=== PATIENT | female | born 2000 | race Caucasian/White ===

== ENCOUNTER 2022-12-23 09:26 | Outpatient (CLI) | payer OTHER, SELFPAY ==
[2022-12-23 10:33] LABS: Basophils Absolute Auto 0.1 K/mm3 (0.0-0.1); Basophils Percent Auto 0.6 % (0.2-1.2); Eosinophils Percent Auto 0.5 % (0-4.4); Hematocrit 39.2 % (37.0-47.0); Hemoglobin 12.8 g/dL (12.0-15.0); Immature Granulocyte Absolute 0.02 K/mm3 (0.00-0.031); Immature Granulocyte Percent A 0.2 % (0-0.5); Lymphocytes Absolute Auto 2.38 K/mm3 (0.9-3.2); Lymphocytes Percent Auto 27.8 % (18.3-44.2); Mean Corpuscular HGB Conc 32.7 g/dl (32-36); Mean Corpuscular Hemoglobin 27.8 pg (26-34); Mean Corpuscular Volume 85.2 fl (80-100); Mean Platelet Volume 9.7 fl (7.4-10.4); Monocytes Absolute Auto 0.5 K/mm3 (0.1-0.6); Monocytes Percent Auto 5.4 % (2.6-8.5); Neutrophils Absolute Auto 5.6 K/mm3 (1.3-6.7); Neutrophils Percent Auto 65.5 % (45.5-73.1); Platelet Count Result 305 k/mm3 (150-375); Red Cell Distribution Width 12.7 % (11.5-14.5); White Blood Count 8.6 K/mm3 (4.5-10.0)
[2022-12-23 11:18] LABS: HIV 1/2 Ab P24 Ag Result Negative (Negative)
[2022-12-23 11:27] LABS: Hepatitis B Surface Antigen Negative (Negative); Rubella IgG Antibody 5.3 IU/ML
[2022-12-23 12:22] LABS: Glucose 1 Hour PP 50gm Dose 100 mg/dL
[2022-12-24 11:57] LABS: Rapid Plasma Reagin Non-Reactive (NonReactive)
[2022-12-25 17:46] LABS: Varicella IgG Antibody <135.00 Index (>=165.00)
[2022-12-26 09:28] LABS: CMV IgG Antibody <0.60 U/mL (<0.60)
[2023-01-02 11:21] LABS: CF Result NEGATIVE (NEGATIVE); Ethnicity NG
[2023-01-02 19:00] LABS: SMA 2.0 RISK VARIANT NOT DETECTED
[2023-01-07 14:38] LABS: SMA Results Received Yes
== END 2022-12-23 09:27 | disposition home or self-care (01) ==
PROVIDERS: Visit Provider Student in an Organized Health Care Education/Training Program
DX: N94.89 Other specified conditions associated with female genital organs and menstrual cycle (principal)
CPT/HCPCS: 36415; 81220; 81329; 82947; 84702; 85025; 86592; 86644; 86703; 86747; 86762; 86787; 86850; 86900; 86901; 87086; 87088; 87147; 87340; G0432

== ENCOUNTER 2023-03-19 10:19 | Outpatient (CLI) | payer OTHER, SELFPAY ==
--- NOTE | 2023-03-19 10:37 | ECG_ITS ---
Measurements Intervals [place] Rate: 80 P: 33 IA: 132 QRS: 42 QRSD: 100 T: 16 QT: 364 QTc: 422 Interpretive Statements SINUS RHYTHM INCOMPLETE RIGHT BUNDLE BRANCH BLOCK BORDERLINE ECG NO PREVIOUS ECG AVAILABLE FOR COMPARISON Electronically Signed On 03-19-2023 11:11:43 CDT by Chris Watters D.O.
== END 2023-03-19 10:20 | disposition home or self-care (01) ==
LOC: ANHLAB 10:24
PROVIDERS: Visit Provider Obstetrics & Gynecology
DX: R00.2 Palpitations (principal); I45.10 Unspecified right bundle-branch block
CPT/HCPCS: 93005

== ENCOUNTER 2023-03-27 13:09 | Outpatient (CLI) | payer OTHER, SELFPAY | END 2023-03-27 13:10 | disposition home or self-care (01) | LOC: ANHLAB 13:10 | PROVIDERS: Visit Provider Obstetrics & Gynecology | DX: R30.9 Painful micturition, unspecified (principal) | CPT/HCPCS: 87086; 87088; 87147 ==

== ENCOUNTER 2023-05-14 10:58 | Outpatient (RCR) | payer OTHER, SELFPAY ==
[2023-05-14 12:40] LABS: Basophils Percent Auto 0.2 % (0.2-1.2); Eosinophils Percent Auto 0.3 % (0-4.4); Hematocrit 36.2 % (37.0-47.0); Hemoglobin 11.6 g/dL (12.0-15.0); Immature Granulocyte Absolute 0.08 K/mm3 (0.00-0.031); Immature Granulocyte Percent A 0.6 % (0-0.5); Lymphocytes Absolute Auto 2.16 K/mm3 (0.9-3.2); Lymphocytes Percent Auto 16.1 % (18.3-44.2); Mean Corpuscular Hemoglobin 27.8 pg (26-34); Mean Corpuscular Volume 86.8 fl (80-100); Mean Platelet Volume 9.8 fl (7.4-10.4); Monocytes Absolute Auto 0.8 K/mm3 (0.1-0.6); Monocytes Percent Auto 6.3 % (2.6-8.5); Neutrophils Absolute Auto 10.2 K/mm3 (1.3-6.7); Neutrophils Percent Auto 76.5 % (45.5-73.1); Platelet Count Result 315 k/mm3 (150-375); Red Blood Count 4.17 M/mm3 (4.2-5.4); White Blood Count 13.4 K/mm3 (4.5-10.0)
[2023-05-14 12:56] LABS: Glucose 1 Hour PP 50gm Dose 101 mg/dL
[2023-05-14 13:26] LABS: HIV 1/2 Ab P24 Ag Result Negative (Negative)
[2023-05-14] MEDS: RHO(D) IMMUNE GLOBULIN 300 MCG/2 ML SYRINGE IM (16:49)
== END 2023-08-12 23:59 | disposition home or self-care (01) ==
LOC: ANHLAB 10:58
PROVIDERS: Visit Provider Obstetrics & Gynecology
DX: Z11.4 Encounter for screening for human immunodeficiency virus [HIV] (principal); Z29.13 Encounter for prophylactic Rho(D) immune globulin; O36.0190 Maternal care for anti-D [Rh] antibodies, unspecified trimester, not applicable or unspecified; Z3A.00 Weeks of gestation of pregnancy not specified
CPT/HCPCS: 36415; 82947; 85025; 85461; 86703; 86850; 86900; 86901; 90384; 96372; G0432; J2790

== ENCOUNTER 2023-06-27 12:57 | Outpatient (CLI) | payer OTHER, SELFPAY | END 2023-06-27 12:58 | disposition home or self-care (01) | LOC: ANHLAB 12:58 | PROVIDERS: Visit Provider Obstetrics & Gynecology | DX: R30.9 Painful micturition, unspecified (principal) | CPT/HCPCS: 87086; 87088; 87147 ==

== ENCOUNTER 2023-07-08 16:47 | Observation (INO) | payer OTHER, SELFPAY ==
[2023-07-08 18:33] VITALS: BMI 42.2
--- NOTE | 2023-07-08 18:33 | OBADM ---
This patient, Evangelina Jaquez, admitted to the OB room Labor/Delivery/Recovery 104 for observation. Patient/family oriented to hospital policies and general routines including ID bracelet, bed and alarms, visiting hours, pain management, procedures, bathroom and other care routines, personal items, smoking policy, room service/diet, and visiting hours. Patient/Family are encouraged to report perceived risks to care and to ask questions if they do not understand what they are told or what they should do.
--- NOTE | 2023-07-09 12:00 | PM.OBTRLD ---
OB - Triage/Final Diagnosis Visit Information Comments/Additional reasons for admission: I have assessed the risk for this patient, Evangelina Jaquez, and determined that she would benefit from observation care. Evaluation Vital signs: Vital Signs - 24 hr 07/08/23 18:33 Oxygen Delivery Room Air Final Diagnosis (1) Abdominal pain affecting : Code(s): O26.899 - Other specified related conditions, unspecified trimester; R10.9 - Unspecified abdominal pain Status: Acute
== END 2023-07-08 18:45 | disposition home health service (06) ==
PROVIDERS: Admitting Provider Student in an Organized Health Care Education/Training Program; Visit Provider Obstetrics & Gynecology
DX: O26.899 Other specified pregnancy related conditions, unspecified trimester (principal); R10.9 Unspecified abdominal pain; Z3A.00 Weeks of gestation of pregnancy not specified
CPT/HCPCS: 84112; G0378; G0379

== ENCOUNTER 2023-07-15 12:03 | Outpatient (CLI) | payer OTHER, SELFPAY ==
[2023-07-15 13:15] VITALS: BP 116/73; PULSE 95
== END 2023-07-15 13:17 | disposition home or self-care (01) ==
PROVIDERS: Visit Provider Student in an Organized Health Care Education/Training Program
DX: O42.90 Premature rupture of membranes, unspecified as to length of time between rupture and onset of labor, unspecified weeks of gestation (principal); Z3A.00 Weeks of gestation of pregnancy not specified
CPT/HCPCS: 59025; 84112

== ENCOUNTER 2023-08-02 00:20 | Observation (INO) | payer OTHER, SELFPAY ==
--- NOTE | 2023-08-02 01:18 | PC.NURSE ---
[address] AMAYA. PT DENIES FEELING CONTRACTIONS. DISCHARGE ORDERS RECEIVED.
[2023-08-02 01:28] VITALS: BMI 42.2
--- NOTE | 2023-08-03 09:05 | PM.OBTRLD ---
OB - Triage/Final Diagnosis Visit Information Comments/Additional reasons for admission: I have assessed the risk for this patient, Evangelina Jaquez, and determined that she would benefit from observation care. Final Diagnosis (1) Back pain affecting : Code(s): O99.891 - Other specified diseases and conditions complicating ; M54.9 - Dorsalgia, unspecified Status: Acute
== END 2023-08-02 01:45 | disposition home or self-care (01) ==
PROVIDERS: Admitting Provider Obstetrics & Gynecology; Visit Provider Obstetrics & Gynecology
DX: O99.891 Other specified diseases and conditions complicating pregnancy (principal); M54.9 Dorsalgia, unspecified; Z3A.39 39 weeks gestation of pregnancy
CPT/HCPCS: G0378; G0379

== ENCOUNTER 2023-08-07 17:58 | Inpatient (IN) | payer OTHER, SELFPAY ==
[2023-08-07 21:31] LABS: Basophils Percent Auto 0.2 % (0.2-1.2); Eosinophils Percent Auto 0.3 % (0-4.4); Hematocrit 38.6 % (37.0-47.0); Hemoglobin 12.3 g/dL (12.0-15.0); Immature Granulocyte Absolute 0.04 K/mm3 (0.00-0.031); Immature Granulocyte Percent A 0.3 % (0-0.5); Lymphocytes Absolute Auto 2.41 K/mm3 (0.9-3.2); Lymphocytes Percent Auto 20.7 % (18.3-44.2); Mean Corpuscular HGB Conc 31.9 g/dl (32-36); Mean Corpuscular Hemoglobin 26.9 pg (26-34); Mean Corpuscular Volume 84.5 fl (80-100); Mean Platelet Volume 10.6 fl (7.4-10.4); Monocytes Absolute Auto 0.7 K/mm3 (0.1-0.6); Monocytes Percent Auto 5.6 % (2.6-8.5); Neutrophils Absolute Auto 8.5 K/mm3 (1.3-6.7); Neutrophils Percent Auto 72.9 % (45.5-73.1); Platelet Count Result 256 k/mm3 (150-375); Red Blood Count 4.57 M/mm3 (4.2-5.4); Red Cell Distribution Width 15.9 % (11.5-14.5); White Blood Count 11.6 K/mm3 (4.5-10.0)
[2023-08-07 21:32] VITALS: BP 126/76; PULSE 102
[2023-08-07] MEDS: DINOPROSTONE 10 MG VAG INSERT VAGINAL (22:02)
[2023-08-08] VITALS (178 sets, daily range): BP systolic 84–142; BP diastolic 41–95; PULSE 66–125; RESP 16–19; TEMP 36.1–36.7; O2SAT 90–100
--- NOTE | 2023-08-08 11:04 | PM.OBPNLAB ---
Pain Control Date/time seen: 08/08/23 11:04 Pain control: tolerating well Pelvic Exam Dilation (cm): 1 Effacement (%): 50 station: -2 Amniotic membrane status: Intact Contractions Monitor mode: External Contraction pattern: Irregular Status status: Category l Assessment and Plan Assessment: induction ongoing Comments: Will administer Buccal misoprostol for further cervical ripening
[2023-08-08] MEDS: miSOPROStol 25 MCG TABLET 50 MCG PO (11:22)
--- NOTE | 2023-08-08 11:57 | WPDANESEPP ---
Anes - Eval Pre Procedure Procedure: labor epidural Date/Time: 08/08/23 11:57 Preop Diagnosis: labor pain Pre Op Diagnosis: Induction of Labor Patient Data Age: 23 Gender: F Height: Weight: Last Vital Signs Temp 36.1 C L 08/08/23 10:12 Pulse 98 08/08/23 10:35 Resp 19 08/08/23 10:12 BP 134/72 08/08/23 10:35 O2 Del Method Room Air 08/07/23 22:00 Allergies Allergy/AdvReac Type Severity Reaction Status Date / Time cefdinir [From Omnicef] Allergy Mild Hives Verified 08/06/23 09:30 Home Medications Medication Instructions Recorded Confirmed Type prenat.vits,lillie,jdw-ibcg-ufuxf 1 tablet PO DAILY 12/22/22 03/18/23 History sertraline 50 mg tablet 50 mg PO DAILY 12/22/22 03/18/23 History ondansetron HCl 4 mg tablet 4 mg PO Q6H PRN nausea and 06/08/23 Rx vomiting #30 tabs ferrous sulfate 325 mg (65 mg 325 mg PO DAILY 06/11/23 History iron) tablet omeprazole 20 mg capsule,delayed 20 mg PO DAILY #30 caps 06/23/23 06/23/23 Rx release Laboratory Tests 08/07/23 21:24 WBC 11.6 H K/mm3 (4.5-10.0) RBC 4.57 M/mm3 (4.2-5.4) Hgb 12.3 g/dL (12.0-15.0) Hct 38.6 % (37.0-47.0) MCV 84.5 fl (80-100) MCH 26.9 pg (26-34) MCHC 31.9 L g/dl (32-36) RDW 15.9 H % (11.5-14.5) Plt Count 256 k/mm3 (150-375) MPV 10.6 H fl (7.4-10.4) Immature Gran % (Auto) 0.3 % (0-0.5) Neut % (Auto) 72.9 % (45.5-73.1) Lymph % (Auto) 20.7 % (18.3-44.2) Burnett % (Auto) 5.6 % (2.6-8.5) Eos % (Auto) 0.3 % (0-4.4) Baso % (Auto) 0.2 % (0.2-1.2) Lymph # (Auto) 2.41 K/mm3 (0.9-3.2) Burnett # (Auto) 0.7 H K/mm3 (0.1-0.6) Eos # (Auto) 0.0 K/mm3 (0-0.3) Baso # (Auto) 0.0 K/mm3 (0.0-0.1) Abs Immat Gran (auto) 0.04 H K/mm3 (0.00-0.031) Absolute Neuts (auto) 8.5 H K/mm3 (1.3-6.7) Absolute Nucleated RBC 0.0 K/mm3 (0.0-0.012) Nucleated RBC % 0.0 % (0.0-0.2) RPR Pending Blood Type O Negative Antibody Screen Negative Patient hx anesthesia problems: none Family hx anesthesia problems: none Results Review: All pre-operative results and documents have been reviewed as part of the pre-operative evaluation. [facility] Past Medical History Medical History Heart palpitations Pain with urination Suppression of menses Surgical History Surgical History H/O laparoscopy Family History Family History Grandparent Malignant neoplasm of prostate Diabetes mellitus Heart disease Breast cancer Hypertension Mother Hypertension Social History Social History Smoking status: Never smoker Second hand tobacco smoke exposure: No Alcohol intake: former Substance use: never Lack of Transportation: No Lack of Food: Never True Current Housing: I Have Housing Concerned About Future Housing: No Difficulty Paying Gas/Electric Bills: No Difficulty Paying for Meds: No Currently Unemployed: No Education: High School Diploma/GED Difficulty w/ Childcare or Family Care: No Living arrangements: other Additional living arrangements comments: spouse Occupation/Education: unemployed Gender identity (if verbalized by the patient): Female Sexual Orientation (if Verbalized by the Patient): Straight or Heterosexual Spiritual care concerns: No Exam Day of Procedure 08/08/23 11:57 Patient weight: normal Heart: regular rate and rhythm Lungs: clear to auscultation and normal air movement Airway: Mallampati scale class II Neurological: alert and oriented
[2023-08-08] MEDS: LACTATED RINGERS 1,000 ML 999 ML IV CONT (12:36)
[2023-08-08] MEDS: AMPICILLIN 2 GM/NS 100 ML 2 GM/100 ML BAG IVPB (15:00)
[2023-08-08] MEDS: LACTATED RINGERS 1,000 ML 125 ML IV CONT ×2 (15:00→21:41)
[2023-08-08] MEDS: OXYTOCIN 30 UNITS/NS 500 ML 30 UNITS/500 ML BAG IV CONT (15:35)
[2023-08-08] MEDS: AMPICILLIN 1 GM/NS 50 ML 1 GM/50 ML BAG IVPB (18:59)
--- NOTE | 2023-08-08 23:52 | P.PCNOB_ITS ---
OB - Delivery Note Procedure Procedure: Patient pushed for a spontaneous vaginal delivery. The fetus was delivered atraumatically and placed on the maternal abdomen. The cord was clamped and cut after 1 minute of life. The cord was double clamped and cut and a segment of cord was collected for cord gases. Cord blood was collected for blood type and Coomb's testing. The placenta delivered spontaneously and was noted to be intact. The perineum was inspected and there was a 2nd degree perineal laceration. The laceration was repaired with 2-0 vicryl in the usual fashion. The uterus was firm and good hemostasis was noted. The patient and fetus were stable in the delivery room. Induction method: Per Cervidil Protocol Delivery augmentation: Pitocin Delivery monitor: External FHT Route of delivery: Episiotomy description: None Laceration Description: Perineal - 2nd Degree Delivery repair: vicryl Specimen: No Quantitative Blood Loss (ml): 200 Anesthesia type: Epidural Disposition: Floor () Complications: No immediate complications [place] Baby Date of : 08/08/[birth year] Time of : 23:27 Weeks of gestation at delivery: 40 Infant gender: Female Weight (pounds): 7 Weight (ounces): 11 presentation: vertex position: Right Occiput Anterior Placenta delivery description: Spontaneous Cord Vessel Description: 3 Vessels score one minute: 8 score five minutes: 9 AMG Delivery Billing Delivery Delivery: Delivery Charge
[2023-08-09] VITALS (14 sets, daily range): BP systolic 108–153; BP diastolic 61–107; PULSE 78–102; RESP 16–18; TEMP 36.2–37.1; O2SAT 97–100
[2023-08-09] MEDS: OXYTOCIN 30 UNITS/NS 500 ML 30 UNITS/500 ML BAG 125 UNITS IV CONT (00:16)
[2023-08-09] MEDS: IBUPROFEN 600 MG TABLET PO ×3 (01:14→15:29)
--- NOTE | 2023-08-09 02:33 | PC.NURSE ---
Patient transferred to post room #278 per wheelchair from labor and delivery. Support person present. Oriented to unit, room, information board, rooming in, admission packet and security measures. Patient verbalizes understanding.
[2023-08-09 05:42] LABS: Hematocrit 35.8 % (37.0-47.0); Hemoglobin 11.4 g/dL (12.0-15.0)
--- NOTE | 2023-08-09 07:53 | P.PNOB_ITS ---
OB - PN: Subj Subjective Date/time seen: 08/09/23 07:53 Patient comments: no complaints, pain well controlled and tolerating diet [place] feeding status: exclusively breast feeding Narrative: patient doing well this AM. No complaints. Pain is well controlled. She reports minimal bleeding. She is ambulating and voiding without difficulty. She is tolerating PO. She denies N/V, fever, chills. OB - PN: Obj Data Labs 08/09/23 05:20 Labs: Laboratory Results - last 24 hr 08/09/23 05:20 Hgb 11.4 L Hct 35.8 L OB - PN A/P Plan day: 1 Plan: routine care Comments: patient doing well H/H stable continue routine care Time Spent With Patient Time: Total time spent is greater than 50% in coordination of care (as documented) at patient's floor/unit and/or counseling patient: Time with patient: less than 15 minutes Review of Systems Review of Systems: All systems reviewed & are unremarkable except as noted in HPI and below Exam Const: General: comfortable and no acute distress Resp: Effort & Inspection: normal respiratory effort Cardio: Rate: regular rate GI: GI Palp: Yes Soft to palpation and No Tenderness to palpation present (GI) Auscultation: normal bowel sounds Other: fundus firm and below umbilicus. Psych: Affect: normal affect
[2023-08-09] MEDS: MULTIVIT/MIN/PREN/FOL AC/IRON TABLET 1 TAB PO (08:13)
[2023-08-09] MEDS: DIBUCAINE 1% OINTMENT 30 GM TUBE 1 APPLIC TOPICAL (08:14)
[2023-08-09] MEDS: LANOLIN (LANSINOH) 7.5 GM CREAM 1 APPLIC TOPICAL (08:14)
--- NOTE | 2023-08-09 12:26 | WPDANLDPN2 ---
Anes-Prog Note L&D Date/Time: 08/09/23 12:26 Comfortable throughout: labor and delivery Neuraxial method: epidural Epidural/Spinal procedure site: clean & non-tender Neuro status: Neuro function grossly intact. Cardiovascular status: normal Respiratory status: normal Airway patency: baseline Mental status: baseline Post-Op hydration status: normal Vital Signs: Last Vital Signs Temp 36.9 C 08/09/23 07:30 Pulse 85 08/09/23 07:30 Resp 16 08/09/23 07:30 BP 130/72 08/09/23 07:30 Pulse Ox 100 08/09/23 07:30 O2 Del Method Room Air 08/08/23 18:54 Pain score (VAS): 2/10 I/O: Intake & Output 08/08/23 08/09/23 08/09/23 23:59 07:59 15:59 Intake Total 1050 500 Output Total 200 Balance 1050 300 Post-procedural complaints: none Patient feedback: Patient satisfied with anesthetic care.
[2023-08-09] MEDS: ACETAMINOPHEN 325 MG TABLET 650 MG PO ×2 (12:43→19:32)
[2023-08-09] MEDS: SENNA/DOCUSATE SODIUM TABLET 2 TAB PO (20:22)
[2023-08-09 21:57] LABS: Rapid Plasma Reagin Non-Reactive (NonReactive)
[2023-08-10] MEDS: ACETAMINOPHEN 325 MG TABLET 650 MG PO ×2 (02:44→09:29)
[2023-08-10] MEDS: IBUPROFEN 600 MG TABLET PO ×2 (02:44→09:29)
[2023-08-10 07:40] VITALS: BP 127/65; PULSE 84; RESP 16; TEMP 37; O2SAT 100
[2023-08-10 08:00] VITALS: PULSE 84; RESP 16; O2SAT 100
[2023-08-10] MEDS: DOCUSATE SODIUM 100 MG CAPSULE PO (09:30)
[2023-08-10] MEDS: MULTIVIT/MIN/PREN/FOL AC/IRON TABLET 1 TAB PO (09:30)
--- NOTE | 2023-08-10 10:42 | PC.NURSE ---
Patient viewed the discharge video Mother & Baby Care, The First Two Weeks . Patient was given the opportunity and encouraged to ask questions. Patient verbalized understanding of information shared and has been given the mother/baby guide for home reference.
--- NOTE | 2023-08-10 11:53 | PC.NURSE ---
[id number] Introductions were made, then consulted with patient to assess needs related to . Mother led the conversation with her?plans to feed?her infant, the?experience so far and discussed the multiple bruises on her areola from earlier feedings. Resources provided for inpatient and outpatient services with the feeding sheet, mom/baby guide and name written on the white board. Mother voiced understanding of information and will call if there is a request for assistance. RN to the nursery to see if can come back to the parents. [id number] Mother works well with her infant with encouragement and education. Encouraged understanding of the benefits of skin to skin (demonstrating unwrapping and placing upright on her chest), stimulating with massage touch, changing positions to encourage wakefulness, how to watch for early feeding cues, responsive feeding, feeding on demand (aiming for 8-12 times in 24 hours, about every 2-3 hours), milk production, building/maintaining a milk supply, duration of feeding, signs of adequate intake/output and how to record on the feeding sheet. Reviewed positioning and ear, shoulder, hip alignment, supporting the breast to facilitate a deep latch, asymmetrical latch (off-center), leading with the chin with a big, open, wide gape and body close to mother. Infant latched optimally to the left breast in cross cradle position. Education given to mother of how to visualize suck/swallow and listen for drinking at the breast. Infant was able to maintain latch without discomfort to mother. Nipple care reviewed with optimal latch and good positioning. After an effective breastfeed for 15 minutes, infant was detached, placed gfft-va-vkey then offered the right breast. latched optimally to the right breast using football positioning. Reminding mother of comfort measures of healing with a warm and wet washcloth to rinse breast, then leave open to air-dry as needed. Reviewed good handwashing when or touching the breast/nipples to prevent infection. Resources used to facilitate learning were used with the visual handouts, tool, mom and baby guide. Mother is feeding appropriately for growth of infant and understands stimulating infant to eat if needed. Infant has had appropriate feedings in the last 24 hours meets the outcomes for weight, output and jaundice at this time. Mother states she is confident to continue effectively her infant at home, when to call for assistance and denies any additional assistance or education at this time. Reinforced understanding of milk production, transition of milk, signs of adequate intake, transition of stool, prevention/relief of engorgement, plugged ducts, mastitis, responsive watching for feeding cues, the different methods of stimulating to breastfeed 2-3 hours after the start of the last feeding, community resources and when to call a provider using the resource of the mom and baby guide. Parents voiced understanding of the education shared. Reported to the primary RN. [id number] Parents called RN to the room to ask questions concerning and baby care. We reviewed and discussed many topics of concern. Parents were encouraged to reach out to resources when needed, when to call the Doctor but no more new questions at this time for the RN. Dr. Hernandez is present.
[2023-08-10] MEDS: MEASLES,MUMPS,RUBELLA VACCINE 0.5 ML VIAL SUB-Q (13:31)
--- NOTE | 2023-08-10 13:45 | PM.OBDSVD ---
DS: Admitting Diagnosis Discharge Date 08/10/23 Admitting Diagnosis intrauterine at term DS: Discharge Diagnosis Discharge Diagnosis (1) Normal vaginal delivery: Code(s): O80 - Encounter for full-term uncomplicated delivery Status: Acute OB - DS: Summary OB Procedures : None OB Procedures Intrapartum: Spontaneous Vag Delivery OB Procedures: : None Status at Discharge Functional status at discharge: independent ambulation Overall status at discharge: patient is back to baseline Time Spent with Patient Time attestation: Total time spent providing and/or coordinating discharge services: Time spent: Less than 30 minutes Exam Const: General: comfortable and no acute distress Resp: Effort & Inspection: normal respiratory effort Auscultation: clear to auscultation bilaterally Cardio: Rate: regular rate GI: GI Palp: Yes Soft to palpation Auscultation: normal bowel sounds Other: Fundus firm below umbilicus Psych: Appearance: grossly normal Mental Status: mental status grossly normal Affect: normal affect DS: Data Data Completed and Pending Labs on day of discharge: Labs from last 24 hours 08/07/23 21:24 RPR Non-reactive Discharge Plan Discharge Discharging Clinician: Jose Martin Hernandez Patient Disposition: Home, Self-Care Activity: as tolerated and pelvic rest Diet: regular Patient Instructions: Antibiotic Form Stand Alone Forms: General Discharge Information Follow-up/Referrals: Jose Martin Hernandez MD [Physician] - Discharge Medications: New ibuprofen 600 mg tablet 600 mg PO Q6H PRN (Reason: pain) Qty: 30 0RF acetaminophen 500 mg tablet 500 mg PO Q6H PRN (Reason: pain) Qty: 30 0RF Continued ferrous sulfate 325 mg (65 mg iron) tablet 325 mg PO DAILY sertraline 50 mg tablet 50 mg PO DAILY prenat.vits,lillie,cbu-symn-aavld Tablet 1 tablet PO DAILY omeprazole 20 mg capsule,delayed release(DR/EC) 20 mg PO DAILY Qty: 30 3RF ondansetron HCl 4 mg tablet 4 mg PO Q6H PRN (Reason: nausea and vomiting) Qty: 30 1RF Date of admission: 08/07/23 17:58 Primary Care Provider: UNKNOWN,DOCTOR Admitting Provider: Jose Martin Hernandez Attending physician on admission: Jose Martin Hernandez Condition: Stable
[2023-08-12 09:28] VITALS: BP 139/83; PULSE 87; RESP 18; TEMP 37.1; O2SAT 99
== END 2023-08-10 15:25 | disposition home or self-care (01) | DRG 807 ==
LOC: ANHLDR 18:02 → ANHOB2 08-09 02:52
PROVIDERS: Admitting Provider Student in an Organized Health Care Education/Training Program; Visit Provider Student in an Organized Health Care Education/Training Program
DX: O99.824 Streptococcus B carrier state complicating childbirth (principal); Z37.0 Single live birth; Z3A.40 40 weeks gestation of pregnancy; O77.0 Labor and delivery complicated by meconium in amniotic fluid; O70.1 Second degree perineal laceration during delivery
CPT/HCPCS: 36415; 85014; 85018; 85025; 86592; 86850; 86900; 86901; 90710; A9270; J0290; J2590; J2795; J7120

== ENCOUNTER 2023-09-26 16:20 | Emergency (ER) | payer OTHER, SELFPAY ==
[2023-09-26 16:32] VITALS: BP 108/72; PULSE 75; RESP 16; TEMP 36.4; O2SAT 98
--- NOTE | 2023-09-26 16:58 | ED.SKABFB ---
HPI - Skin/Abscess/Foreign Bdy General Chief complaint: Skin/Abscess/Foreign Body Stated complaint: Rash Time Seen by Provider: 09/26/23 16:53 Source: patient and RN notes reviewed Mode of arrival: ambulatory Limitations: no limitations History of Present Illness HPI narrative: Patient presents today complaining of a rash in her abdominal skin fold times 2-3 days. States that is pruritic and she has been scratching it. States that she has used some home athlete's foot cream a few times, but stopped using it because she did not want to make the rash worse. Related Data Home Medications Medication Instructions Recorded Confirmed sertraline 50 mg tablet 50 mg PO DAILY 09/03/23 09/26/23 vit#24-iron amino acid 1 tablet PO DAILY 09/26/23 09/26/23 chelat-folic acid 30 mg-975 mcg tablet Allergies Allergy/AdvReac Type Severity Reaction Status Date / Time cefdinir [From Omnicef] AdvReac Mild Hives Verified 09/26/23 16:34 Review of Systems Review of Systems: CONSTITUTIONAL: Denies body aches, fever, chills, or sweats. EYES: Denies visual changes, redness, or discharge. ENT: Denies rhinorrhea, congestion, sore throat, or otalgia. CARDIOVASCULAR: Denies chest pain, palpitations, or edema. RESPIRATORY: Denies cough or dyspnea. GASTROINTESTINAL: Denies abdominal pain, nausea, vomiting, or diarrhea. GENITOURINARY: Denies dysuria or hematuria. SKIN: + pruritic rash MUSCULOSKELETAL: Denies back pain, joint pain, or myalgia. NEUROLOGIC: Denies headache, numbness, tingling, or weakness. PSYCH: Denies depression or anxiety. [facility] Past Medical History Medical History Heart palpitations Pain with urination Suppression of menses Surgical History Surgical History H/O laparoscopy Family History Family History Grandparent Malignant neoplasm of prostate Diabetes mellitus Heart disease Breast cancer Hypertension Mother Hypertension Social History Social History Smoking status: Never smoker Second hand tobacco smoke exposure: No Alcohol intake: former Substance use: never Lack of Transportation: No Lack of Food: Never True Current Housing: I Have Housing Concerned About Future Housing: No Difficulty Paying Gas/Electric Bills: No Difficulty Paying for Meds: No Currently Unemployed: No Education: High School Diploma/GED Difficulty w/ Childcare or Family Care: No Living arrangements: other Additional living arrangements comments: spouse Occupation/Education: unemployed Gender identity (if verbalized by the patient): Female Sexual Orientation (if Verbalized by the Patient): Straight or Heterosexual Spiritual care concerns: No Comments At time of signature, I have reviewed and agree with nursing past medical, surgical, social and family history unless otherwise noted. Please see nursing chart for further information. There is no relevant family history pertinent to the presenting complaint Exam Narrative: GENERAL: Well-appearing, well-nourished, and in no acute distress. HEAD: Normocephalic, atraumatic. EYES: EOMI. No redness or drainage. Conjunctivae normal. ENT: Mucous membranes pink and moist. NECK: Normal AROM. CHEST: No respiratory distress. EXTREMITIES: Normal range of motion. No edema. SKIN: Warm, dry. Capillary refill normal. Normal skin turgor. Large area of erythematous papular rash to the lower abdominal skin fold. Rash is dry. No open wounds. No weeping or drainage. NEURO: No focal deficits. Alert and oriented x3. Gait steady. PSYCH: Normal affect. No signs of depression or anxiety. Course Course Level of Care: Express Care Visit Vital Signs Vital signs: Vital Signs Temperature 97
== END 2023-09-26 17:04 | disposition home or self-care (01) ==
PROVIDERS: Emergency Provider Nurse Practitioner
DX: L30.4 Erythema intertrigo (principal)
CPT/HCPCS: 99213; G0463

== ENCOUNTER 2025-01-28 10:38 | Emergency (ER) | payer OTHER, SELFPAY ==
--- OUTSIDE RECORDS SUMMARY | 2025-01-28 10:40 | XMS_ITS | Referral Summary ---
Author Organization [facility] Virtual Care Address [facility] [place] [address] Phone Care Team Providers Care Summer Clerk Name Role Phone Kristy Oates HELPER COORDINATOR Primary Care Provider Luiza Patel DPT Unavailable [phone] Encounters Date Type Department Care Team Description 01/05/2025 Telephone [facility] [address] [place] [address] Shelly Tay RPh 01/05/2025 Telephone [facility] Rheumatology at [address], [place] [address] Nicky Truong DO wear a mask 01/03/2025 Telephone [facility] Rheumatology at [address], [place] [address] Nicky Truong DO 12/15/2024 E-Visit [facility] Rheumatology at [address], [place] [address] Nicky Truong DO Physical therapy 11/30/2024 9:48 AM MOTOR BIKE MECHANIC - 11/30/2024 11:59 PM MOTOR BIKE MECHANIC Hospital Encounter [facility] [address] [place] [address] Discharge Disposition: Discharge to home or self care 11/30/2024 8:15 AM MOTOR BIKE MECHANIC Office Visit [facility] Rheumatology at [facility] [address] [place] [address] Nicky Truong DO Seronegative inflammatory arthritis (Primary Dx); High risk medication use from Last 3 Months Allergies Active Allergy Reactions Criticality Noted Date Comments Adhesive Rash Medium 06/20/2022 Papular rash to adhesive bandages Cashew Nut Anaphylaxis,Other (S ee comments) High 01/31/2013 Cefdinir Hives,Itching,Rash Medium 07/03/2006 Medications iron 18 mg tablet Take by mouth every other day Active magnesium oxide (MAG-OX) 500 mg (301.6 mg elemental) tablet every other day Acti ve acetaminophen (TYLENOL) 500 mg tablet Take 1 tablet (500 mg total) by mouth every 6 (six) hours as needed for pain Active EPINEPHrine 0.3 mg/0.3 mL auto-injection syringeIndicat ions:Anaphylax is Inject 0.3 mL (0.3 mg total) into the muscle as instructed as needed for anaphylaxis 2 each 04/03/20 23 Active sertraline (ZOLOFT) 50 mg tabletIndicati ons:Anxiety,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 (HCC) TAKE ONE AND ONE-HALF TABLETS DAILY 135 tablet 3 07/01/20 24 Active ketoconazole (NIZORAL) 2 % creamIndicatio ns:Candidal intertrigo APPLY TOPICALLY TO THE AFFECTED AREA TWICE DAILY 30 g 2 09/01/20 24 Active adalimumab (Humira,CF, Pen) 40 mg/0.4 mL pen injector kit Inject 0.4 mL (40 mg total) under the skin every 14 (fourteen) days 2 each 09/26/20 24 Active hydroxychloroq uine (PLAQUENIL) 200 mg tablet TAKE 2 TABLETS DAILY 180 tablet 3 11/24/19 25 Active etanercept (ENBREL) 50 mg/mL (1 mL) pen injector Inject 1 mL (50 mg total) under the skin every 7 days 4 mL 5 01/06/20 25 Active meloxicam (MOBIC) 15 mg tablet Take 1 tablet (15 mg total) by mouth daily 90 tablet 01/06/20 25 Active meloxicam (MOBIC) 15 mg tablet TAKE 1 TABLET(15 MG) BY MOUTH DAILY 30 tablet 2 11/15/19 25 025 Discontinued Active Problems Problem Noted Date Diagnosed Date High risk medication use 11/30/2024 Assessment & Plan (11/30/2024 7:07 AM MOTOR BIKE MECHANIC): Patient is on immunosuppressive medication requiring intensive lab monitoring for medication safety. Seronegative inflammatory arthritis 08/22/2024 Assessment & Plan (11/30/2024 9:27 AM MOTOR BIKE MECHANIC): Better with addition of hydroxychloroquine, but still with moderate-high disease severity. She is a woman of child-bearing years, not currently on any method of control. Would avoid methotrexate and leflunomide due to high risk of teratogenicity. Currently on Humira x7 shots and not noticing super robust response. Check labs and if no improvement in inflammation markers, will consider switch to Enbrel. Continue other medications the same for now. Assessment & Plan (08/22/2024 9:32 AM CDT): Better with addition of hydroxychloroquine, but still with moderate-high disease severity. She is a woman of child-bearing years, not currently on any method of control. Would avoid methotrexate and leflunomide due to high risk of teratogenicity. Discussed sulfasalazine versus Humira. I think that given her degree of symptoms and that she is having to walk with a walker, we should proceed with Humira. Demonstrated use of Humira pen today. Discussed side effects including: injection site reactions, infections, etc. She is willing to proceed. Continue hydroxychloroquine 200 mg BID and meloxicam 15 mg daily for now. Therapeutic drug monitoring 08/22/2024 Assessment & Plan (08/22/2024 9:33 AM CDT): Check labs for medication monitoring after starting on hydroxychloroquine. Candidal intertrigo 04/18/2024 Overview (04/18/2024): - intermittent redness and pain under abdominal fold - used lotrimin and gold odonnell powder without resolution of symptoms - worse since having daughter 8 months ago - denies open areas, drainage, or bleeding Encouraged to keep area dry and maintain good hygiene practices. Start ketoconazole cream. Follow up if symptoms worsen or fail to improve. BMI 45.0-49.9, adult 04/18/2024 Overview (04/18/2024): - increased weight since of daughter - normal TSH and glucose within past 2 months - denies increased hunger, thirst, urination, depression Encouraged increased awareness of habits. Focus on enjoyable physical activity and quality sleep. Chronic cough 09/26/2022 Overview (12/26/2022): -Few month history of cough -Cough is still present, not as bothersome -Improving cough, resolved and is back, but not as intense -Scant mucous with cough -Color varies but mostly yellow mucous -Occasional drainage from nose -Is not taking any OTC -Denies KING, sinus pressure, trouble breathing, CP, N/V Supportive care measures provided to patient. She is not interested in starting any medications at this time. Chronic pain of multiple joints 08/11/2022 Overview (04/18/2024): - chronic joint pain in knees, ankles, and wrists - intermittent radiating pain in upper and lower back - chronic fatigue - improvement with baseline pain since starting meloxicam 7.5 mg daily - upcoming appointment with [facility] Rheumatology - denies redness, warmth, injury, pica, SOB, CP Increase meloxicam to 15 mg daily. Menorrhagia with regular cycle 05/05/2022 Dysmenorrhea 05/05/2022 Overview (05/05/2022): Added automatically from request for surgery [id number] Pelvic pain 01/15/2022 Overview (03/20/2022): - pelvic pain since 09/2021 - no history of PAP - denies discharged, abnormal periods, GI symptoms, UTI symptoms, or back pain - appointment with [employer] in 02/2022 - possible interstitial cystitis Depression Overview (12/26/2022): -Last office visit Zoloft 50mg prescribed -Tolerating medication dosage -Improvement in mood and anxiety -Has not resumed working -Recently got and is expecting -Currently 8 weeks , established with OBGYN -Appears to be excited and in good spirits -Still has some little pleasure in doing things -Not currently following with counselor due to insurance change -Endorsed having good support system at home -Denies SI/HI, difficulty focusing Plan to continue current dosage of Zoloft 50mg. Patient is aware to contact the office with any changes in mood or concerns. If any issues locating new counselor, patient to contact office. Plan to see patient back in clinic for annual visit. Anxiety Overview (09/26/2022): - ongoing anxiety and increased depression - stopped medications in 04/2022 and 05/2022 - difficulty getting out of the house - quit job d/t bad work environment - previously prescribed several antidepressants - following up with counselor for 2 months - denies SI and HI Start sertaline 50 mg daily- reviewed side effects. May increase to 75 mg after 1 week. Continue counseling and follow up in 4-6 weeks. Resolved Problems Problem Noted Date Diagnosed Date Resolved Date Supervision of other normal , antepartum 12/17/2022 12/23/2022 Overview (12/17/2022): -positive MECCA 11/26/22, being followed up with by rheumatology -BMI>40 [] Initial BMI: [] Labs: [] Genetic Screening: [] Baby ASA: [] 1hr GCT at 24-28wks: [] Tdap (27-36wks): [] Flu Shot: [] COVID vaccine: [] Rhogam (if Rh neg): [] GBS at 36 wks: [] [] control method: [] 39 weeks discussion of IOL vs. Expectant management: [] Mode of delivery: [] For C/S bottle of CHG 4% and hand out provided @ 36wks Teaching: [] 1st visit [] 28-30 week [] 36 week Acute recurrent frontal sinusitis 02/28/2021 01/15/2022 Immunizations Immunization Administration Dates Next Due DTaP 11/30/2000,01/13/2000,1999 ,1999 HPV9 06/09/2016 Hep A, Pediatric 06/09/2016 Hep B / HiB 1999 Hep B, Adolescent or Pediatric 04/23/2000,1998 Hib (PRP-T) 11/30/2000,01/13/2000,1999 IPV 04/23/2000,1999,1999 Influenza, Unspecified 07/09/2023 MMR 09/16/2000 Meningococcal ACWY, Unspecified 06/09/2016 PPD TEST 11/15/2021 Tdap 06/25/2023 Varicella 09/16/2000 Social History Tobacco Use Types Packs/Day Years Used Date Smoking Tobacco: Never Smokeless Tobacco: Never Tobacco Cessation:Counseling Given: Not Answered AUDIT-C Answer Date Recorded Q1: How often do you have a drink containing alc ohol? Monthly or less 12/26/2022 Average Number of Drinks Not on file 023 Frequency of Binge Drinking Not on file 12/2022 PHQ-2 Answer Date Recorded PHQ-2 Total Score (If total score is 3 or more points, staff should administer the PHQ-9) 4 02/21/2022 Comments Unknown Sex and Gender Information Value Date Recorded Sex Assigned at Not on file Legal Sex Female 1:17 PM CDT Gender Identity Female 10/10/2021 10:07 AM MOTOR BIKE MECHANIC Sexual Orientation Choose not to disclose 2020 10:07 AM MOTOR BIKE MECHANIC Last Filed Vital Signs Vital Sign Reading Time Taken Comments Blood Pressure 122/66 11/30/2024 8:40 AM MOTOR BIKE MECHANIC Pulse 90 11/30/2024 8:40 AM MOTOR BIKE MECHANIC Temperature 36.7 C (98 F) 11/30/2024 8:40 AM MOTOR BIKE MECHANIC Respiratory Rate 18 11/30/2024 8:40 AM MOTOR BIKE MECHANIC Oxygen Saturation 98% 11/30/2024 8:40 AM MOTOR BIKE MECHANIC Inhaled Oxygen Concentration - - Weight 129.3 kg (285 lb) 11/30/2024 8:40 AM MOTOR BIKE MECHANIC Height 165.1 cm (5' 5 ) 11/30/2024 8:40 AM MOTOR BIKE MECHANIC Body Mass Index 47.43 11/30/2024 8:40 AM MOTOR BIKE MECHANIC Plan of Treatment Not on file Procedures Procedure Name Priority Date/Time Associated Diagnosis Comments EGFR Routine 11/30/2024 9:43 AM MOTOR BIKE MECHANIC Seronegative inflammatory arthritis High risk medication use CRP (ACUTE PHASE) Routine 11/30/2024 9:4 3 AM MOTOR BIKE MECHANIC Seronegative inflammatory arthritis High risk medication use ERYTHROCYTE SEDIMENTATION RATE Routine 11/30/2024 9:43 AM MOTOR BIKE MECHANIC Seronegative inflammatory arthritis High risk medication use COMPREHENSIVE METABOLIC PANEL Routine 11/30/2024 9:43 AM MOTOR BIKE MECHANIC Seronegative inflammatory arthritis High risk medication use CBC WITHOUT DIFFERENTIAL Routine 11/30/2024 9:43 AM MOTOR BIKE MECHANIC Seronegative inflammatory arthritis High risk medication use HEPATITIS C ANTIBODY Routine 08/22/2024 1:05 PM CDT Need for hepatitis C screening test from Last 3 Months or Most Recently Relevant to Health Maintenance Results * eGFR (11/30/2024 9:43 AM MOTOR BIKE MECHANIC) eGFR >90 >=60 mL/min/1. 73 m2 Comment: Interpretive Data Reference Interval Normal >/= 90 mL/min/1.73m2 Mildly decreased* 60 - 89 mL/min/1.73m2 Mildly to moderately decreased 45 - 59 mL/min/1.73m2 Moderately to severely decreased 30 - 44 mL/min/1.73m2 Severely decreased 15 - 29 mL/min/1.73m2 Kidney Failure < 15 mL/min/1.73m2 *Relative to young adult level Estimated glomerular filtration rate is determined by the 2020 CKD-EPI equation recommended by the National Kidney Foundation (A Unifying Approach to GFR Estimation: Recommendations of the NKF-ASK Task Force on Reassessing the Inclusion of Race in Diagnosing Kidney Disease, JASN 2020). The CKD-EPI equation should not be used for patients with unstable renal function and has not been validated in children and those over 70. Current interpretive data was last reviewed 2021. Blood 11/30/2024 9:43 AM MOTOR BIKE MECHANIC 11/30/2024 1:25 PM MOTOR BIKE MECHANIC [facility] [place]OD [place] Final Result Performing Organization Address City/[facility]/ZIP Co de Phone Number [facility] [address] [facility] [place] [address] * (ABNORMAL) Erythrocyte sedimentation rate (11/30/2024 9:43 AM MOTOR BIKE MECHANIC) Erythrocyte sedimentation rate 22(H) 1 - 20 mm/hr Blood 11/30/2024 9:43 AM MOTOR BIKE MECHANIC 11/30/2024 1:26 PM MOTOR BIKE MECHANIC Nickychristiano Copeer LAB BLOOD ORDERABLES Final Result Performing Organization Address [facility] de Phone Number [facility] [address] [facility] [place] [address] * (ABNORMAL) CBC without differential (11/30/2024 9:43 AM MOTOR BIKE MECHANIC) Pathologist [facility] WBC 8.2 3.8 - 9.9 K/cumm Hgb 13.5 11.9 - 15.5 g/dL [facility] Hct 42.2 35.6 - 45.5 % [facility] Plt 282 150 - 400 K/cumm [facility] MPV 10.6 9.1 - 12.3 fL [facility] RBC 4.84 3.90 - 5.20 M/cumm [facility] MCV 87.2 81.3 - 96.4 fL [facility] MCH 27.9 27.1 - 33.3 pg [facility] MCHC 32.0(L) 32.3 - 35.7 g/dL [facility] RDW CV 12.6 11.1 - 14.9 % [facility] RDW SD 40.2 35.7 - 48.1 fL [facility] NRBC abs 0.00 0.00 - 0.01 K/cumm [facility] Blood 11/30/2024 9:43 AM MOTOR BIKE MECHANIC 11/30/2024 1:26 PM MOTOR BIKE MECHANIC Nicky Truong LAB BLOOD ORDERABLES Final Result Performing Organization Address City/[facility] Co de Phone Number [facility] [address] [facility] [place] [address] * (ABNORMAL) CRP (acute phase) (11/30/2024 9:43 AM MOTOR BIKE MECHANIC) Pathologist [facility] CRP 23.8(H) <=10.0 mg/L Blood 11/30/2024 9:43 AM MOTOR BIKE MECHANIC 11/30/2024 1:25 PM MOTOR BIKE MECHANIC Nickychristiano Aburto Dionne LAB BLOOD ORDERABLES Final Result Performing Organization Address [facility] de Phone Number [facility] [address] [facility] [place] [address] * (ABNORMAL) Comprehensive metabolic panel (11/30/2024 9:43 AM MOTOR BIKE MECHANIC) Pathologist [facility] Sodium 138 135 - 145 mmol/L Potassium, pl 4.2 3.3 - 4.9 mmol/L [facility] Chloride 103 97 - 110 mmol/L [facility] CO2 24 22 - 32 mmol/L [facility] Anion gap 11 2 - 15 mmol/L [facility] BUN 16 6 - 25 mg/dL [facility] Creatinine 0.49(L) 0.60 - 1.10 mg/dL [facility] Glucose 94 70 - 199 mg/dL [facility] Comment: Interpretive Data Fasting glucose >/= 126 mg/dl is diagnostic for diabetes. Fasting is defined as no caloric intake for at least 8 hours. Fasting glucose between 100 mg/dl to 125 mg/dl is diagnostic of prediabetes. In a patient with classic symptoms of hyperglycemia or hyperglycemic crisis, a random glucose >/= 200 mg/dl is diagnostic for diabetes. In the absence of unequivocal hyperglycemia, results should be confirmed by repeat testing. The classification and Diagnosis of Diabetes Diabetes Care 2021; 46: S19-S40. Current interpretive data was last revised 2022. Calcium 9.0 8.5 - 10.3 mg/dL [facility] Bilirubin, total 0.3 0.1 - 1.2 mg/dL [facility] Protein, pl 7.2 6.5 - 8.5 g/dL [facility] Albumin 4.0 3.5 - 5.0 g/dL [facility] Alk phos 70 40 - 130 Units/L [facility] ALT 12 7 - 45 Units/L [facility] AST 14 10 - 45 Units/L [facility] Blood 11/30/2024 9:43 AM MOTOR BIKE MECHANIC 11/30/2024 1:25 PM MOTOR BIKE MECHANIC Nicky Truong DO LAB BLOOD ORDERABLES Final Result Performing Organization Address [facility] Co de Phone Number [facility] [address] [place] [address] * Hepatitis C antibody Blood (08/22/2024 1:05 PM CDT) Hep C Ab Nonreactive Nonreactive Comment: Interpretive Data Nonreactive: Antibodies to HCV not detected. Does NOT exclude the possibility of recent exposure to HCV. Equivocal: Equivocal for HCV antibodies. Supplemental molecular testing will be automatically performed to determine infection status in accordance with current CDC screening recommendations. Reactive: Positive for HCV antibodies. This may represent current or past HCV infection. Supplemental molecular testing will be automatically performed to determine current infection status in accordance with current CDC screening recommendations. Interpretive data was last revised on 2020. Blood 08/22/2024 1:05 PM CDT 08/22/2024 1:05 PM CDT Nicky Truong DO LAB MICROBIOLOGY - GENERAL ORDERABLES Final Result Performing Organization Address City/[facility]/ZIP Co de Phone Number [facility] [address] [place], [place] [id number] from Last 3 Months or Most Recently Relevant to Health Maintenance Insurance [employer] OPEN ACCESS [employer] OPEN ACCESS Care Teams Summer Clerk Relationship Specialty Start Date End Date Kristy Oates NP PCP - General Nurse Practitioner 01/03/22 Luiza Patel DPT Physical Therapist Physical Therapy 03/20/22
--- OUTSIDE RECORDS SUMMARY | 2025-01-28 10:40 | XMS_ITS | Clinical Summary ---
Author Organization [facility] Virtual Care Address [address] [place] [phone] Phone Care Team Providers Care Business Technology Teacher Name Role Phone Kristy Oates TEMPLATE REPRODUCTION TECHNICIAN Primary Care Provider Luiza Patel DPT Unavailable [phone] Allergies Active Allergy Reactions Criticality Noted Date [...] skin every 14 (fourteen) days 2 each 11 09/26/20 24 Active hydroxychloroq uine (PLAQUENIL) 200 [...] 11/30/2024 Assessment & Plan (11/30/2024 7:07 AM CLIENT LEADER): Patient is on immunosuppressive medication requiring intensive lab monitoring for medication safety. Seronegative inflammatory arthritis 08/22/2024 Assessment & Plan (11/30/2024 9:27 AM CLIENT LEADER): Better with addition of hydroxychloroquine, but still [...] 7.5 mg daily - upcoming appointment with [facility] Rheumatology - denies redness, warmth, injury, pica, SOB, CP Increase meloxicam to 15 mg daily. Menorrhagia with regular cycle 05/05/2022 Dysmenorrhea 05/05/2022 Overview (05/05/2022): Added automatically from request for surgery [id number] Pelvic pain 01/15/2022 Overview (03/20/2022): - pelvic pain since 09/2021 - no history of PAP - denies discharged, abnormal periods, GI symptoms, UTI symptoms, or back pain - appointment with [facility] in 02/2022 - possible interstitial cystitis Depression [...] week Acute recurrent frontal sinusitis 02/28/2021 01/15/2022 Encounters Date Type Department Care Team Description 01/05/2025 Telephone [facility] [address] [facility] [address] [place] [phone] Shelly Tay [facility] 01/05/[address] [facility] Rheumatology at [address] [place] [phone] Nicky Truong DO wear a mask 01/03/[address] [facility] Rheumatology at [address] [place] [phone] Nicky Truong DO 12/15/2024 E-Visit [facility] Rheumatology at [address] [place] [phone] Nicky Truong DO Physical therapy 11/30/2024 9:48 AM CLIENT LEADER - 11/30/2024 11:59 PM CLIENT LEADER Hospital Encounter [address] [phone] Discharge Disposition: Discharge to home or self care 11/30/2024 8:15 AM CLIENT LEADER Office Visit [facility] Rheumatology at [address] [place] [phone] Nicky Truong DO Seronegative inflammatory arthritis (Primary Dx); High risk medication use from Last 3 Months Immunizations Immunization Administration Dates Next Due DTaP 11/30/2000,01/13/2000,1999 ,1999 HPV9 06/09/2016 Hep A, Pediatric 06/09/2016 Hep B / HiB 1999 Hep B, Adolescent or Pediatric 04/23/2000,1998 Hib (PRP-T) 11/30/2000,01/13/2000,1999 IPV 04/23/2000,1999,1999 Influenza, Unspecified 07/09/2023 MMR 09/16/2000 Meningococcal ACWY, Unspecified 06/09/2016 PPD TEST 11/15/2021 Tdap 06/25/2023 Varicella 09/16/2000 Surgical History Surgery Date Site/Laterality Comments LAPAROSCOPY 10/26/2021 - 10/25/2022 abdominal Medical History Medical History Date Comments GERD (gastroesophageal reflux disease) Anxiety 2008 Depression Menstrual problem PTSD (post-traumatic stress disorder) OCD (obsessive compulsive disorder) Acute recurrent frontal sinusitis 02/28/2021 Interstitial cystitis 09/2021 referring physician wants 2nd opinion Family History Medical History Relation Name Comments No Known Problems Brother No Known Problems Daughter Hypertension Father Car Accident Maternal Grandfather Cause o f Heart attack Maternal Grandfather Alzheimer's disease Maternal Grandmother Chelsie Anxiety disorder Maternal Grandmother Chelsie Arthritis Maternal Grandmother Chelsie Inflammatory bowel disease Maternal Grandmother Delore s Memory loss Maternal Grandmother Chelsie Hyperlipidemia Mother Pebbles Hypertension Mother Pebbles Heart attack Mother's Brother Richard Prostate cancer Paternal Grandfather Ray Cancer Paternal Grandmother Portia Depression Paternal Grandmother Portia Diabetes type II Paternal Grandmother Portia Anesthesia problems Neg Hx Relation Name Status Comments Brother Alive Daughter Alive Father Alive Maternal Grandfather Maternal Grandmother Chelsie Alive Mother Pebbles Alive Mother's Brother Richard Paternal Grandfather Ray Paternal Grandmother Portia Social History Tobacco Use Types Packs/Day Years [...] CDT Gender Identity Female 10/10/2021 10:07 AM CLIENT LEADER Sexual Orientation Choose not to disclose 2020 10:07 AM CLIENT LEADER Obstetrics History Para Term AB IAB SAB Ectopic Multiple Livin g Live Births 1 0 0 0 0 0 0 0 0 0 0 Date Outcome GA Total Labor Labor/2nd/3rd Weight Sex Type Anes PTL [place] A1 A5 Name Clin Last Filed Vital Signs Vital Sign Reading Time Taken Comments Blood Pressure 122/66 11/30/2024 8:40 AM CLIENT LEADER Pulse 90 11/30/2024 8:40 AM CLIENT LEADER Temperature 36.7 C (98 F) 11/30/2024 8:40 AM CLIENT LEADER Respiratory Rate 18 11/30/2024 8:40 AM CLIENT LEADER Oxygen Saturation 98% 11/30/2024 8:40 AM CLIENT LEADER Inhaled Oxygen Concentration - - Weight 129.3 kg (285 lb) 11/30/2024 8:40 AM CLIENT LEADER Height 165.1 cm (5' 5 ) 11/30/2024 8:40 AM CLIENT LEADER Body Mass Index 47.43 11/30/2024 8:40 AM CLIENT LEADER Plan of Treatment Health Maintenance Due Date Last Done Comments Cervical Cancer Screening 1999 Regular Well Visit/Exam 18-64 2017 Pneumococcal vaccine <65 (1 of 2 - PCV) 2018 Zoster Vaccine (1 of 2) 2018 Covid-19 Vaccine (3 - Modern a risk series) 03/01/2021 02/01/2021, 01/04/2021 Depression Screening 02/21/2023 02/21/2022, 02/21/2022, 01/07/2022 Influenza Vaccine (Season Ended) 2025 07/09/20 23 DTaP/Tdap/Td Vaccine (6 - Td or Tdap) 06/25/2033 06/25/2023, 11/30/2000, 01/13/2000, Additional history exists Varicella Vaccines Discontinued 09/16/2000 HPV Vaccines Discontinued 06/09/2016 Hepatitis B Screening Completed 08/22/2024 , 04/23/2000, 1999, Additional history exists Hepatitis C Screening Completed 08/22/2024 Procedures Procedure Name Priority Date/Time Associated Diagnosis Comments EGFR Routine 11/30/2024 9:43 AM CLIENT LEADER Seronegative inflammatory arthritis High risk medication use CRP (ACUTE PHASE) Routine 11/30/2024 9:4 3 AM CLIENT LEADER Seronegative inflammatory arthritis High risk medication use ERYTHROCYTE SEDIMENTATION RATE Routine 11/30/2024 9:43 AM CLIENT LEADER Seronegative inflammatory arthritis High risk medication use COMPREHENSIVE METABOLIC PANEL Routine 11/30/2024 9:43 AM CLIENT LEADER Seronegative inflammatory arthritis High risk medication use CBC WITHOUT DIFFERENTIAL Routine 11/30/2024 9:43 AM CLIENT LEADER Seronegative inflammatory arthritis High risk medication use HEPATITIS C ANTIBODY Routine 08/22/2024 1:05 PM CDT Need for hepatitis C screening test from Last 3 Months or Most Recently Relevant to Health Maintenance Results * eGFR (11/30/2024 9:43 AM CLIENT LEADER) eGFR >90 >=60 mL/min/1. 73 m2 Comment: [...] of Race in Diagnosing Kidney Disease, JASN 2021). The CKD-EPI equation should not be used for patients with unstable renal function and has not been validated in children and those over 70. Current interpretive data was last reviewed 2021. Blood 11/30/2024 9:43 AM CLIENT LEADER 11/30/2024 1:25 PM CLIENT LEADER [facility] Criselda Truong LAB BLOOD ORDERABLES Final Result Performing Organization Address City/[facility]/ZIP Co de Phone Number [facility] [address] [facility] [place] [address] * (ABNORMAL) Erythrocyte sedimentation rate (11/30/2024 9:43 AM CLIENT LEADER) Pathologist [facility] Erythrocyte sedimentation rate 22(H) 1 - 20 mm/hr Blood 11/30/2024 9:43 AM CLIENT LEADER 11/30/2024 1:26 PM CLIENT LEADER Nicky Truong LAB BLOOD ORDERABLES Final Result Performing Organization Address [facility] de Phone Number [facility] [address] [place] [address] * (ABNORMAL) CBC without differential (11/30/2024 9:43 AM CLIENT LEADER) Pathologist [facility] WBC 8.2 3.8 - 9.9 K/cumm Hgb 13.5 11.9 - 15.5 g/dL [facility] Hct 42.2 35.6 - 45.5 % [facility] Plt 282 150 - 400 K/cumm [facility] MPV 10.6 9.1 - 12.3 fL [facility] RBC 4.84 3.90 - 5.20 M/cumm [facility] MCV 87.2 81.3 - 96.4 fL [facility] MCH 27.9 27.1 - 33.3 pg [facility] MCHC 32.0(L) 32.3 - 35.7 g/dL [facility] RDW CV 12.6 11.1 - 14.9 % [facility] RDW SD 40.2 35.7 - 48.1 fL [facility] NRBC abs 0.00 0.00 - 0.01 K/cumm [facility] Blood 11/30/2024 9:43 AM CLIENT LEADER 11/30/2024 1:26 PM CLIENT LEADER us Nickychristiano Truong LAB BLOOD ORDERABLES Final Result Performing Organization Address City/[facility]/ZIP Co de Phone Number [facility] [address] [place] [address] * (ABNORMAL) CRP (acute phase) (11/30/2024 9:43 AM CLIENT LEADER) Pathologist [facility] CRP 23.8(H) <=10.0 mg/L Blood 11/30/2024 9:43 AM CLIENT LEADER 11/30/2024 1:25 PM CLIENT LEADER Nicky Truong LAB BLOOD ORDERABLES Final Result Performing Organization Address [facility] Co de Phone Number [facility] [address] Department [place] [employer] [place] [address] * (ABNORMAL) Comprehensive metabolic panel (11/30/2024 9:43 AM CLIENT LEADER) [facility] Sodium 138 135 - 145 mmol/L Potassium, pl 4.2 3.3 - 4.9 mmol/L [facility] Chloride 103 97 - 110 mmol/L [facility] CO2 24 22 - 32 mmol/L [facility] Anion gap 11 2 - 15 mmol/L [facility] BUN 16 6 - 25 mg/dL [facility] Creatinine 0.49(L) 0.60 - 1.10 mg/dL [facility] Glucose 94 70 - 199 mg/dL [facility] Comment: Interpretive Data Fasting glucose >/= 126 [...] 2022. Calcium 9.0 8.5 - 10.3 mg/dL [facility] Bilirubin, total 0.3 0.1 - 1.2 mg/dL [facility] Protein, pl 7.2 6.5 - 8.5 g/dL [facility] Albumin 4.0 3.5 - 5.0 g/dL [facility] Alk phos 70 40 - 130 Units/L [facility] ALT 12 7 - 45 Units/L [facility] AST 14 10 - 45 Units/L [facility] Blood 11/30/2024 9:43 AM CLIENT LEADER 11/30/2024 1:25 PM CLIENT LEADER Nicky Truong DO LAB BLOOD ORDERABLES Final Result Performing Organization Address [facility] de Phone Number [facility] [address] [place] [address] * Hepatitis C antibody Blood (08/22/2024 1:05 [...] GENERAL ORDERABLES Final Result Performing Organization Address City/[facility]/ZIP Co de Phone Number [facility] [address] [place] [address] from Last 3 Months or Most Recently Relevant to Health Maintenance Insurance C[employer] OPEN ACCESS CIGNA OPEN ACCESS Care Teams Business Technology Teacher Relationship Specialty Start Date End Date Kristy Oates NP PCP - General Nurse Practitioner 01/03/22 Luiza Patel DPT Physical Therapist Physical Therapy 03/20/22
--- OUTSIDE RECORDS SUMMARY | 2025-01-28 10:40 | XMS_ITS | Clinical Summary ---
Author Organization [facility] Address [address] [place] [address] Care Team Providers Care House Worker Name Role Phone Unavailable Primary Care Provider Unavailabl e Source Comments [facility] [employer],non-owned Affiliates and Associated Physician Practices is amultiple site organization consisting of ambulatory clinics and hospital sitesin [place], [place] and [place]. This disclosure is being madepursuant to the Care Everywhere program and may not contain all information available regarding this patient. Last updated 18.[facility] [employer] Allergies Active Allergy Reactions Criticality Noted Date Comments Cefdinir Urticaria Medium 03/13/2023 Social History Tobacco Use Types Packs/Day Years Used Date Smoking Tobacco: Never Assessed Sex and Gender Information Value Date Recorded Sex Assigned at Not on file Gender Identity Not on file Sexual Orientation Not on file Plan of Treatment Health Maintenance Due Date Last Done Comments PAP SMEAR 1999 HIV SCREENING 2014 HPV VACCINE (1 - 3-dose series) 2014 CHLAMYDIA/GONORRHEA SCREENING 2015 HEPATITIS C SCREENING 05/23/2017 DTAP/TDAP/TD VACCINES (1 - Tdap) 2018 HEPATITIS B VACCINE (1 of 3 - 19+ 3-dose series) 2018 COVID-19 VACCINE ( - 2023-2 5 season) 2024 INFLUENZA VACCINE (#1) 2024 DEPRESSION SCREENING 10/26/2024 ZOSTER VACCINE (1 of 2) 2049 HIB VACCINE Aged Out No longer eligi ble based on patient's age to complete this topic MENINGOCOCCAL (Group B) VACC INE SHARED DECISION-MAKING Aged Out No longer eligibl e based on patient's age to complete this topic MENINGOCOCCAL GROUPS A/C/Y/W VACCINE Aged Out No longer eligible b ased on patient's age to complete this topic PNEUMOCOCCAL VACCINE Aged Out No long er eligible based on patient's age to complete this topic
--- OUTSIDE RECORDS SUMMARY | 2025-01-28 10:40 | XMS_ITS | Encounter Summary ---
Author Organization [facility] Address [address] [place] [address] Phone Care Team Providers Care Wire Twisting Machine Operator Name Role Phone Pebbles Sanon LATHE SET UP PERSON Primary Care Provider Bebe Cheng DPT Unavailable [phone] Kristy Oates LATHE SET UP PERSON Primary Care Provider Luiza Patel DPT Unavailable [phone] Encounter Details Date Type Department Care Team (Latest Contact Info) Description 06/10/2018 Orders Only [facility] ED Scanning, Provider Social History Tobacco Use Types Packs/Day Years Used Date Smoking Tobacco: Never Assessed Comments Unknown Sex and Gender Information Value Date Recorded Sex Assigned at Not on file Legal Sex Female 1:17 PM CDT Gender Identity Female 10/10/2021 10:07 AM COMMODITY ANALYST Sexual Orientation Choose not to disclose 2020 10:07 AM COMMODITY ANALYST documented as of this encounter Plan of Treatment Not on file documented as of this encounter Procedures Procedure Name Priority Date/Time Associated Diagnosis Comments SCAN - LABS 06/10/2018 documented in this encounter Results * SCAN - LABS (06/10/2018) us Provider Scanning Final Result documented in this encounter Visit Diagnoses Not on filedocumented in this encounter Care Teams Wire Twisting Machine Operator Relationship Specialty Start Date End Date Pebbles Sanon NP PCP - General Family Practice 08/13/21 01/02/22 Kristy Oates, MALIHA [address] [id number] PCP - General Nurse Practitioner 01/03/22 Bebe Cheng DPT [address] [id number] Physical Therapist Physical Therapy 09/12/21 03/19/22 Luiza Patel DPT [address] [phone] Physical Therapist Physical Therapy 03/20/22 documented as of this encounter
--- NOTE | 2025-01-28 10:41 | ED.GENADULT ---
HPI - General Adult General Chief complaint: Upper Respiratory Infection Stated complaint: sore throat Time Seen by Provider: 01/28/25 10:41 Source: patient Mode of arrival: ambulatory Limitations: no limitations History of Present Illness HPI narrative: 24-year-old female patient presents to the [facility] with complaints of sore throat started yesterday. Denies fever, body aches or chills. Patient states she has had a little bit of congestion and mild cough at times. Denies any ear pain. Denies any chest pain or shortness of breath. Denies abdominal pain, nausea, vomiting or diarrhea. Patient states she has taken some Tylenol for her symptoms. Related Data Home Medications ?Medication ?Instructions ?Recorded ?Confirmed ?Last Taken ?Type sertraline 50 mg tablet 75 mg PO DAILY 12/08/23 12/19/24 Unknown History adalimumab 40 mg/0.4 mL See Rx Instructions subcut .COMPLEX 12/19/24 12/19/24 Unknown History subcutaneous syringe kit (Humira(CF)) hydroxychloroquine 200 mg tablet 200 mg PO BID 12/19/24 12/19/24 Unknown History (Plaquenil) meloxicam 15 mg tablet 15 mg PO 12/19/24 12/19/24 Unknown History Allergies Allergy/AdvReac Type Severity Reaction Status Date / Time cefdinir (From Omnicef) AdvReac Mild Hives Verified 01/28/25 10:42 Review of Systems Review of Systems: CONSTITUTIONAL: Denies fever, chills, or sweats. EYES: Denies visual changes, redness, or discharge. ENT: Denies rhinorrhea, positive congestion, Positive sore throat, denies otalgia. CARDIOVASCULAR: Denies chest pain, palpitations, or edema. RESPIRATORY: Denies cough or dyspnea. GASTROINTESTINAL: Denies abdominal pain, nausea, vomiting, or diarrhea. GENITOURINARY: Denies dysuria or hematuria. SKIN: Denies rash or itching. MUSCULOSKELETAL: Denies back pain, joint pain, or myalgia. NEUROLOGIC: Denies headache, numbness, or weakness. PSYCHIATRIC: Denies anxiety or depression. [facility] Past Medical History Medical History Arthritis Pain with urination Heart palpitations Suppression of menses Surgical History Surgical History H/O laparoscopy Family History Family History Grandparent Malignant neoplasm of prostate Diabetes mellitus Heart disease Breast cancer Hypertension Mother Hypertension Social History Social History Smoking status: Never smoker Second hand tobacco smoke exposure: No Alcohol intake: former Substance use: never Lack of Transportation: No Lack of Food: Never True Current Housing: I Have Housing Concerned About Future Housing: No Difficulty Paying Gas/Electric Bills: No Difficulty Paying for Meds: No Currently Unemployed: No Education: High School Diploma/GED Difficulty w/ Childcare or Family Care: No Living arrangements: other Additional living arrangements comments: spouse Occupation/Education: unemployed Gender identity (if verbalized by the patient): Female Sexual Orientation (if Verbalized by the Patient): Straight or Heterosexual Spiritual care concerns: No Comments At the time of my signature I agree with nursing past medical history, surgical, social, and family history. There is no relevant family history pertinent to the presenting complaint. Exam Narrative: GENERAL: Well-appearing, well-nourished, and in no acute distress. HEAD: Normocephalic, atraumatic. EYES: PERRLA and EOMI. ENT: Nares With erythema edema noted bilaterally, no rhinorrhea or epistaxis. Mucous membranes moist. posterior pharynx with some postnasal drip noted. No tonsillar enlargement, no erythema or exudates noted. Bilateral TMs are clear no erythema or foreign body in the canal. NECK: Supple. No lymphadenopathy CHEST: Clear to auscultation. No respiratory distress. HEART: Regular rate and rhythm. No murmur heard. Normal peripheral pulses. ABDOMEN: Soft, nontender, nondistended, normal active bowel sounds. EXTREMITIES: Normal range of motion. No edema. SKIN: Warm, dry, no rash. NEURO: No focal deficits. Alert and oriented x3. Course Course Level of Care: Express Care Visit Vital Signs Vital signs: Vital Signs Temperature 36.1 C L 01/28/25 10:48 Pulse Rate 79 01/28/25 10:48 Respiratory Rate 18 01/28/25 10:48 Blood Pressure 131/67 01/28/25 10:48 Pulse Oximetry 98 01/28/25 10:48 Oxygen Delivery Room Air 01/28/25 10:48 Temperature 36.1 C L 01/28/25 10:48 Pulse Rate 79 01/28/25 10:48 Respiratory Rate 18 01/28/25 10:48 Blood Pressure 131/67 01/28/25 10:48 Pulse Oximetry 98 01/28/25 10:48 Oxygen Delivery Room Air 01/28/25 10:48 Vital signs reviewed. Medical Decision Making MDM Narrative Medical decision making narrative: discussed with patient that her point of care test for strep was negative today. Discussed with her that I would highly recommended to treat with [id number] medications including Tylenol, ibuprofen, warm salt water gargles hot tea and honey. Discussed with patient we will send this off to lab for a culture and if the culture comes back positive we will call her and place her on antibiotics at that time. Patient verbalized understanding denies any other questions or concerns at this time Differential Diagnosis Differential Diagnosis: Differential diagnosis: Viral pharyngitis, pharyngitis, group A strep, infectious mononucleosis, gonococcal pharyngitis, exudative pharyngitis, oral candidiasis. Chronic allergies, postnasal drip, GERD, abscess formation, but glottitis, retropharyngeal abscess formation, or airway obstruction. Vital Signs Vital Signs: Vital Signs Temperature 36.1 C L 01/28/25 10:48 Pulse Rate 79 01/28/25 10:48 Respiratory Rate 18 01/28/25 10:48 Blood Pressure 131/67 01/28/25 10:48 Pulse Oximetry 98 01/28/25 10:48 Oxygen Delivery Room Air 01/28/25 10:48 Temperature 36.1 C L 01/28/25 10:48 Pulse Rate 79 01/28/25 10:48 Respiratory Rate 18 01/28/25 10:48 Blood Pressure 131/67 01/28/25 10:48 Pulse Oximetry 98 01/28/25 10:48 Oxygen Delivery Room Air 01/28/25 10:48 Lab Data Labs: Lab Results 01/28/25 Range/Units 10:55 POC Grp A Strep Screen Negative (Negative) Critical Care Time Critical Care Time Critical Care Time: No Discharge Plan Discharge Clinical Impression: Pharyngitis Qualifiers: Pharyngitis/tonsillitis etiology: unspecified etiology Qualified Code(s): J02.9 - Acute pharyngitis, unspecified Patient Disposition: Home, Self-Care Condition: Stable Instructions: Antibiotic Form, Pharyngitis (ED) Additional Instructions: A sore throat can be caused by an infection from a virus or bacteria. Sore throat can also be caused by postnasal drip, allergies, and exposure to smoke. A viral sore throat last 3-4 days and cannot be treated with antibiotics. One type of sore throat virus, infectious mononucleosis ( mono ), can last for 3 weeks and older children. The germs that cause these infections are contagious and can be spread by coughing or sharing drinks or utensils. Contact her primary care physician or go to the ER if: Your trouble breathing or swallowing because her throat is swollen or sore. You're drooling because it hurts too much to swallow. You're painful lump in your throat go away after 5 days. You're fever is higher than 10 2??F or last longer than 3 days. You have confusion. You are blood in your throat. You're sore throat should feel better within 3-5 days without treatment if it is caused by virus. You may need the following: Ibuprofen or Tylenol as needed for pain or fever Gargle warm salt water Drink more liquids, cold or warm drinks may help soothe her throat. Humidifier in your room. Cough drops, ice, soft foods, or popsicles may help soothe her throat. A spoonful of honey could help with inflammation and soothe her throat. Wash her hands with soap and water, do not share food or drinks, throat away her toothbrush after 72 hours. Patient Language: Citizen Of [place] Prescriptions: No Action sertraline 50 mg tablet 75 mg PO DAILY meloxicam 15 mg tablet 15 mg PO hydroxychloroquine [Plaquenil] 200 mg tablet 200 mg PO BID Humira(CF) 40 mg/0.4 mL syringe kit See Rx Instructions subcut .COMPLEX Rx Instructions: inject one - 40 mg/0.8 mL syringe every 2 weeks subcut Follow-up/Referrals: PHYSICIAN NOT ON STAFF,NONSTAFF [Primary Care Provider] - Time of Disposition: 11:02
--- OUTSIDE RECORDS SUMMARY | 2025-01-28 10:41 | XMS_ITS | Encounter Summary ---
Author Organization [facility] Healthcare Address [address] [place] [address] Care Team Providers Care Lead Fire Protection Engineer Name Role Phone Kristy Oates BLIND EYELETTER Primary Care Provider Luiza Patel DPT Unavailable Reason for Referral * Physical Therapy (Routine) - Pending Review Specialty Diagnoses / Procedures Referred By Charlene deleon Referred To Contact Physical Therapy Diagnoses Seronegative inflammatory arthritis Nicky Truong DO [address] [place] [address] [place] [address] Phone: tel: fax: External Order Referral ID Status Reason Start Date Expiration Date Visits Requested Visits Authorized [id number] Pending Review Specialty Services Required 12/19/2024 01/18/2026 24 24 Question Answer PTRFR PT Evaluate and Treat Therapy options discussed with patient? Yes Location provided for therapy services is: Patient requested/Patient preferred Please select the performing region: External Order [[id number]] # of visits: 24 Comments ARTIST Encounter Details Date Type Department Care Team (Late st Contact Info) Description 12/15/2024 E-Visit [facility] Rheumatology at [facility] [address] [facility] [address] [place] [address] Dionne Nickychristiano Aburto, [address] [place]NMARIE [address] [place] [address] Physical therapy Social History Tobacco Use Types Packs/Day Years Used Date Smoking Tobacco: Never Smokeless Tobacco: Never AUDIT-C Answer Date Recorded Q1: How often [...] CDT Gender Identity Female 10/10/2021 10:07 AM NAIL ARTIST Sexual Orientation Choose not to disclose 2020 10:07 AM NAIL ARTIST documented as of this encounter Plan of Treatment Scheduled Referrals Name Type Priority Associated Diagnoses Orde r Schedule Ambulatory referral order to Physical Therapy - Outpatient Referral Routine Seronegative inflammatory arthritis 1 Occurrences starting 12/19/2024 until 06/18/2026 documented as of this encounter Visit Diagnoses Diagnosis Seronegative inflammatory arthritis- Primary documented in this encounter Care Teams Lead Fire Protection Engineer Relationship Specialty Start Date End Date Kristy Oates NP PCP - General Nurse Practitioner 01/03/22 Luiza Patel DPT Physical Therapist Physical Therapy 03/20/22 documented as of this encounter
--- OUTSIDE RECORDS SUMMARY | 2025-01-28 10:41 | XMS_ITS | Encounter Summary ---
Author Organization [facility] Address [address] [place] [address] Phone Care Team Providers Care Watermelon Inspector Name Role Phone Kristy Oates SALES ENGAGEMENT EXECUTIVE Primary Care Provider Luiza Patel DPT Unavailable [phone] Encounter Details Date Type Department Care Team (Latest Contact Info) Description 03/19/2023 Orders Only [facility] ED Scanning, Provider Social History Tobacco [...] should administer the PHQ-9) 4 02/21/2022 Comments No Sex and Gender Information Value Date Recorded Sex Assigned at Not on file Legal Sex Female 1:17 PM CDT Gender Identity Female 10/10/2021 10:07 AM OPTICAL ENGINEER Sexual Orientation Choose not to disclose 2020 10:07 AM OPTICAL ENGINEER documented as of this encounter Plan of Treatment Not on file documented as of this encounter Procedures Procedure Name Priority Date/Time Associated Diagnosis Comments CARDIOLOGY DOCUMENT SCAN 03/19/2023 documented in this encounter Results * CARDIOLOGY DOCUMENT SCAN (03/19/2023) Anatomical Region Laterality Modality Other us Provider Scanning CV CARDIAC SERVICES PROCEDURES Final Result documented in this encounter Visit Diagnoses Not on filedocumented in this encounter Care Teams Watermelon Inspector Relationship Specialty Start Date End Date Kristy Oates NP PCP - General Nurse Practitioner 01/03/22 Luiza Patel DPT Physical Therapist Physical Therapy 03/20/22 documented as of this encounter
[2025-01-28 10:48] VITALS: BP 131/67; PULSE 79; RESP 18; TEMP 36.1; O2SAT 98
[2025-01-28 10:55] LABS: EDSTREPNEGPOS1 Negative (Negative)
== END 2025-01-28 11:03 | disposition home or self-care (01) ==
PROVIDERS: Emergency Provider Nurse Practitioner Family
DX: J02.9 Acute pharyngitis, unspecified (principal); M19.90 Unspecified osteoarthritis, unspecified site
CPT/HCPCS: 87081; 87880; 99213; G0463

== ENCOUNTER 2025-08-20 11:26 | Emergency (ER) | payer OTHER, SELFPAY ==
--- NOTE | ~2025-08-20 | XR_ITS ---
Examination: XR chest 2V Clinical History: productive cough, sob, tactile fever Comparison: None Technique: PA and Lateral Findings: Cardiomediastinal silhouette normal size and configuration. Lungs clear. No acute bony abnormality. IMPRESSION: 1. No acute cardiopulmonary findings. Reviewed, dictated and finalized at location R.
--- OUTSIDE RECORDS SUMMARY | 2025-08-20 11:30 | XMS_ITS | Encounter Summary ---
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
--- OUTSIDE RECORDS SUMMARY | 2025-08-20 11:30 | XMS_ITS | Clinical Summary ---
Author Organization [facility] Address [address] [place] [address] Care Team Providers Care Cracking Still Operator Name Role Phone Kristy Prado RED HAT LINUX ENGINEER Primary Care Provider [phone] Nicky Truong DO Unavailable [phone] Allergies Active Allergy Reactions Criticality Noted Date Comments Cefdinir Hives Medium 03/13/2023 Nuts Anaphylaxis High 06/21/2025 Tree nuts Medications hydroxychloroqu ine (PLAQUENIL) 200 MG tablet Take 1 tablet (200 mg total) by mouth 2 (two) times daily. Active sertraline (ZOLOFT) 50 MG tablet Take 2.5 tablets (125 mg total) by mouth daily. Active busPIRone (BUSPAR) 10 MG tablet Take 1 tablet (10 mg total) by mouth 2 (two) times daily. Active meloxicam (MOBIC) 15 MG tablet Take 1 tablet (15 mg total) by mouth daily as needed (pain). Active etanercept (ENBREL) 50 MG/ML injection Inject 1 mL (50 mg total) into the skin once a week. Active acetaminophen (TYLENOL) 500 MG tablet Take 1 tablet (500 mg total) by mouth every 4 (four) hours as needed. Active Encounters Date Type Department Care Team Description 06/22/2025 11:14 AM CDT Anesthesia Event [facility] [place] [address] Gus Anderson MD Jackson, Allison Hope, MGMT ANALYST 06/22/2025 10:44 AM CDT - 06/22/2025 11:36 AM CDT Surgery [facility] [place] [address] Brandon Macias MD CYSTOSCOPY AND BULKING AGENT 06/22/2025 9:48 AM CDT - 06/22/2025 1:10 PM CDT Hospital Encounter [facility] [place] [address] Bradnon Macias MD Discharge Disposition: Home or Self Care (Routine Discharge) 06/22/2025 Travel 06/21/[address] [facility] [place] [address] Brandon Macias MD 06/21/2025 Travel from Last 3 Months Social History Tobacco Use Types Packs/Day Years Used Date Smoking Tobacco: Never Smokeless Tobacco: Never Tobacco Cessation:Counseling Given: Not Answered Alcohol Use Standard Drinks/Week Comments Yes 1.7 (1 standard drink = 0.6 oz p ure alcohol) Comments No Sex and Gender Information Value Date Recorded Sex Assigned at Female 06/22/2025 9:45 AM CDT Legal Sex Female 3:16 PM CDT Gender Identity Not on file Sexual Orientation Not on file Last Filed Vital Signs Vital Sign Reading Time Taken Comments Blood Pressure 132/82 06/22/2025 1:00 PM CDT Pulse 71 06/22/2025 1:00 PM CDT Temperature 36.3 C (97.4 F) 06/22/2025 1:00 PM CDT Respiratory Rate 18 06/22/2025 1:00 PM CDT Oxygen Saturation 99% 06/22/2025 1:00 PM CDT Inhaled Oxygen Concentration - - Weight 128.9 kg (284 lb 2.8 oz) 025 10:05 AM CDT Height 165.1 cm (5' 5) 06/22/2025 10:0 5 AM CDT Body Mass Index 47.29 06/22/2025 10:05 AM CDT Plan of Treatment Health Maintenance Due Date Last Done Comments Cervical Cancer Screening Pa p Smear (Age 21 to 29) Every 3 Years 1999 Cervical Cancer Screening 1999 Annual Physical 2002 HPV Vaccines (1 - 3-dose series) 2014 Hepatitis C 2017 Hepatitis B Vaccines (1 of 3 - 19+ 3-dose series) 2018 COVID-19 Vaccine ( - 2024-2 6 season) 2025 Influenza Adult (#1) 2025 DTaP, Tdap and Td Vaccines ( 2 - Td or Tdap) 06/25/2033 06/25/2023 Hepatitis A Vaccines Aged Out No long er eligible based on patient's age to complete this topic Meningococcal B Vaccine Aged Out No l onger eligible based on patient's age to complete this topic Meningococcal Vaccine Aged Out No jessica shruti eligible based on patient's age to complete this topic Pneumococcal Vaccine: Pediat rics (0 to 5 Years) and At-Risk Patients (6 to 49 Years) Aged Out No longer eligi ble based on patient's age to complete this topic RSV Immunizations Under 20 Months Aged Out No longer eligible based on patient's age to complete this topic Medical Devices Implanted Type Area Liner Replacer Device Identifier Shelf Expiration Date Model / Serial / Lot Bulkamid Urethra Bulking Agent - [id number] Implanted:Qty : 1 on 06/22/2025 by Brandon Macias MD at [facility] Urology N/A: Urethra [employer] 04/24/2027 [id number] / / [id number] Procedures Procedure Name Priority Date/Time Associated Diagnosis Comments ENDOSCOPIC INJECTION/IMPLANT 06/22/2025 11:14 AM CDT STRESS INCONTINENCE FEMALE, URGENCY OF URINATION N39.3, R39.15 Case Notes SCHED BY FAX (CONFIRMED DATE OF 06/22/2025 WITH MARLEY) 06/19/2025 [facility] PHONE ASSESS POCT URINE (BACK OFFICE) STAT 06/22/2025 Preop examination from Last 3 Months Results * POCT urine (06/22/2025) URINE HCG TEST NEGATIVE NEGATIVE [facility] Comment:LOT: [id number] EXP: 2026-11-16 Internal Control: VALID VALID [facility] 06/22/2025 Allison Hope [place]ley MGMT ANALYST POINT OF CARE TEST ALBERT LIVAN Final Result [facility] [address] [place] [address], from Last 3 Months Insurance [employer] Care Teams Cracking Still Operator Relationship Specialty Start Date End Date Kristy Prado NP [address] [place] [address] PCP - General NURSE PRACTITIONER 06/21/25 Nicky Truong DO [address] [place] [address] RHEUMATOLOGY 06/21/25
--- OUTSIDE RECORDS SUMMARY | 2025-08-20 11:30 | XMS_ITS | Encounter Summary ---
Author Organization [facility] Address [address] [place] [address] Phone Care Team Providers Care Senior Network Engineer Name Role Phone Pebbles Sanon SQL DEVELOPER Primary Care Provider Bebe Cheng DPT Unavailable [phone] Kristy Oates SQL DEVELOPER Primary Care Provider Luiza Patel DPT Unavailable [phone] Encounter Details Date Type Department Care Team (Latest Contact Info) Description 06/10/2018 Orders Only [facility] ED Scanning, Provider Social History Tobacco Use Types Packs/Day Years Used Date Smoking Tobacco: Never Assessed Comments Unknown Sex and Gender Information Value Date Recorded Sex Assigned at Not on file Legal Sex Female 1:17 PM CDT Gender Identity Female 10/10/2021 10:07 AM RESTAURANT SHIFT LEADER Sexual Orientation Choose not to disclose 2020 10:07 AM RESTAURANT SHIFT LEADER documented as of this encounter Plan of Treatment Not on file documented as of this encounter Procedures Procedure Name Priority Date/Time Associated Diagnosis Comments SCAN - LABS 06/10/2018 documented in this encounter Results * SCAN - LABS (06/10/2018) us Provider Scanning Final Result documented in this encounter Visit Diagnoses Not on filedocumented in this encounter Care Teams Senior Network Engineer Relationship Specialty Start Date End Date Pebbles Sanon NP PCP - General Family Practice 08/13/21 01/02/22 Kristy Oates, MALIHA [address] [id number] PCP - General Nurse Practitioner 01/03/22 Bebe Cheng DPT [address] [id number] Physical Therapist Physical Therapy 09/12/21 03/19/22 Luiza Patel DPT [address] [id number] Physical Therapist Physical Therapy 03/20/22 documented as of this encounter
--- OUTSIDE RECORDS SUMMARY | 2025-08-20 11:30 | XMS_ITS | Clinical Summary ---
Author Organization [facility] Virtual Care Address [address] [place] [phone] Phone Care Team Providers Care Managing Member Name Role Phone Kristy Oates MACHINE MADE SHOE UNIT WORKER Primary Care Provider Luiza Patel DPT Unavailable [phone] Allergies Active Allergy Reactions Criticality Noted Date Comments Adhesive Rash Medium 06/20/2022 Papular rash to adhesive bandages Adhesive Tape-Silicones Rash Medium 06/20/2022 Papular rash to adhesive bandages Cashew Nut Anaphylaxis,Other (See comments) High 01/31/2013 Cefdinir Hives,Itching,Rash Medium 07/03/2006 Medications iron 18 mg tablet Take by mouth every other day Active magnesium oxide (MAG-OX) 500 mg (301.6 mg elemental) tablet every other day Acti ve acetaminophen (TYLENOL) 500 mg tablet Take 1 tablet (500 mg total) by mouth every 6 (six) hours as needed for pain Active EPINEPHrine 0.3 mg/0.3 mL auto-injection syringeIndicati ons:Anaphylaxis Inject 0.3 mL (0.3 mg total) into the muscle as instructed as needed for anaphylaxis 2 each 3 Active ketoconazole (NIZORAL) 2 % creamIndication s:Candidal intertrigo APPLY TOPICALLY TO THE AFFECTED AREA TWICE DAILY 30 g 2 4 Active hydroxychloroqu ine (PLAQUENIL) 200 mg tablet TAKE 2 TABLETS DAILY 180 tablet 3 5 Active busPIRone (BUSPAR) 5 mg tablet TAKE 1 TABLET BY MOUTH UP TO TWICE DAILY NEEDED FOR ANXIETY 5 Active EnbreL SureClick 50 mg/mL (1 mL) pen injector INJECT 1 ML (50 MG TOTAL) UNDER THE SKIN EVERY 7 DAYS 4 mL 5 5 Active meloxicam (MOBIC) 15 mg tablet TAKE 1 TABLET DAILY 90 tablet 1 5 Active sertraline (ZOLOFT) 50 mg tabletIndicatio ns:Anxiety,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 Then, continue to obtain yearly eye exams (or as directed by your eye doctor) while taking Plaquenil. Provider: Please perform the following exams on an annual basis: Visual Acuity Visual Field testing Slit Lamp evaluation Color Vision Assessment OCT [facility] (current) use of n on-steroidal anti-inflammatories (nsaid) 06/09/2025 Assessment & Plan (06/09/2025 10:30 AM CDT): Please remember that NSAID-type medications have two very important potential side effects: gastrointestinal irritation including hemorrhage and renal injuries. Make sure to take the medication with food and to stop if you experiences any GI upset. Please call our office or your PCP should you develop vomiting, abdominal pain or black/bloody stools. Make sure to take NSAID-type medications with food and stay well-hydrated to reduce the risk of GI or kidney issues. Take care when using [id number]-[id number] medications as some also contain NSAIDs. The most common lexz-rer-mrjhaxl NSAIDs include naproxen and ibuprofen. Make sure that you do not take more than one oral NSAID-type medications at the same time unless specifically directed to by a medical professional. Immunosuppression due to drug therapy 06/09/2025 Assessment & Plan (06/09/2025 10:30 AM CDT): Long-term use of high-risk medication requiring regular monitoring. Labs ordered, no s/s of med tox or infection. Encouraged to work with PCP to make sure all recommended cancer screens and vaccinations are complete. Avoid live-vaccines unless reviewed with paediatrician first. High risk medication use 11/30/2024 Assessment & Plan (06/09/2025 10:29 AM CDT): Long-term use of high-risk medication requiring regular monitoring. Labs ordered, no s/s of med tox or infection. Encouraged to work with PCP to make sure all recommended cancer screens and vaccinations are complete. Avoid live-vaccines unless reviewed with paediatrician first. Assessment & Plan (03/01/2025 3:38 PM CDT): Patient is on immunosuppressive medication requiring intensive lab monitoring for medication safety. Assessment & Plan (11/30/2024 7:07 AM GENERAL HOUSE WORKER): Patient is on immunosuppressive medication requiring intensive lab monitoring for medication safety. Seronegative inflammatory arthritis 08/22/2024 Assessment & Plan (06/09/2025 10:30 AM CDT): Better with addition of hydroxychloroquine, but still with moderate-high disease severity. She is a woman of child-bearing years, not currently on any method of control, considering this year. Would avoid methotrexate and leflunomide due to high risk of teratogenicity. Currently on Enbrel, discussed switch to Cimzia if she were to become given it does not cross the placenta and does not have detectable levels in breast milk. Hold meloxicam if occurs. Assessment & Plan (03/06/2025 9:53 AM CDT): Better with addition of hydroxychloroquine, but still with moderate-high disease severity. She is a woman of child-bearing years, not currently on any method of control, considering this year. Would avoid methotrexate and leflunomide due to high risk of teratogenicity. Currently on Enbrel, discussed switch to Cimzia if she were to become given it does not cross the placenta and does not have detectable levels in breast milk. Assessment & Plan (11/30/2024 9:27 AM GENERAL HOUSE WORKER): Better with addition of hydroxychloroquine, but still [...] 7.5 mg daily - upcoming appointment with [facility] Rheumatology - denies redness, warmth, injury, pica, SOB, CP Increase meloxicam to 15 mg daily. Menorrhagia with regular cycle 05/05/2022 Dysmenorrhea 05/05/2022 Overview (05/05/2022): Added automatically from request for surgery [id number] Pelvic pain 01/15/2022 Overview (03/20/2022): - pelvic pain since 09/2021 - no history of PAP - denies discharged, abnormal periods, GI symptoms, UTI symptoms, or back pain - appointment with [facility] in 02/2022 - possible interstitial cystitis Depression [...] Encounters Date Type Department Care Team Description 08/10/2025 Telephone [facility] Rheumatology at [place] [address] [facility] [address] [address] Nicky Truong, DO nasal drainage 06/21/2025 Telephone [facility] [address] [phone] Yumiko Mendes CPhT 06/11/2025 Results Follow-Up [facility] Rheumatology at [place] [address] [facility] [address] [place] [id number] Christine Jaffe, MALIHA CRP (acute phase), Erythrocyte sedimentation rate, Comprehensive metabolic panel, Additional followed-up results: 3 06/09/2025 10:54 AM CDT - 06/09/2025 11:59 PM CDT Hospital Encounter [place] [address] [place] [address] Discharge Disposition: Discharge to home or self care 06/09/2025 10:30 AM CDT Office Visit [facility] Rheumatology at [address], [place] [address] Christine Jaffe NP Seronegative inflammatory arthritis (Primary Dx); High risk medication use; Long-term use of hydroxychloroquine; [facility] (current) use of non-steroidal anti-inflammatories (nsaid); Immunosuppression due to drug therapy; BMI 45.0-49.9, adult (HCC) 06/09/2025 9:00 AM CDT Office Visit [facility] [address] [place] [address] Medical Office [address], [address] [place] [address] Kristy Oates NP Encounter for wellness examination in adult (Primary Dx) from Last 3 Months Immunizations Immunization Administration Dates Next Due DTaP 11/30/2000,01/13/2000,1999 ,1999 HPV9 06/09/2016 Hep A, Pediatric 06/09/2016 Hep B / HiB 1999 Hep B, Adolescent or Pediatric 04/23/2000,1998 Hib (PRP-T) 11/30/2000,01/13/2000,1999 IPV 04/23/2000,1999,1999 Influenza, Unspecified 07/09/2023 MMR 09/16/2000 Meningococcal ACWY, Unspecified 06/09/2016 PPD TEST 11/15/2021 Tdap 06/25/2023 Varicella 09/16/2000 Surgical History Surgery Date Site/Laterality Comments LAPAROSCOPY 10/26/2021 - 10/25/2022 abdominal ABDOMINAL SURGERY May 2022 Medical History Medical History Date Comments GERD (gastroesophageal reflux disease) Anxiety 2008 Depression Menstrual problem PTSD (post-traumatic stress disorder) OCD (obsessive compulsive disorder) Acute recurrent frontal sinusitis 02/28/2021 Interstitial cystitis 09/2021 referring physician wants 2nd opinion Weight gain 2020 Fatigue Anemia Constipation Joint pain Back pain Lactose intolerance Seronegative inflammatory arthritis Family History Medical History Relation Name Comments No Known Problems Brother No Known Problems Daughter Hypertension Father Car Accident Maternal Grandfather Ruiz Cause o f Heart attack Maternal Grandfather Ruiz Heart disease Maternal Grandfather Ruiz Hypertension Maternal Grandfather Ruiz Alzheimer's disease Maternal Grandmother Chelsie Anxiety disorder Maternal Grandmother Chelsie Arthritis Maternal Grandmother Chelsie Inflammatory bowel disease Maternal Grandmother Delore s Memory loss Maternal Grandmother Chelsie Hyperlipidemia Mother Pebbles Hypertension Mother Pebbles Heart attack Mother's Brother Richard Prostate cancer Paternal Grandfather Ray Cancer Paternal Grandmother Portia Depression Paternal Grandmother Portia Diabetes Paternal Grandmother Portia Diabetes type II Paternal Grandmother Portia Anesthesia problems Neg Hx Relation Name Status Comments Brother Alive Daughter Alive Father Alive Maternal Grandfather Ruiz Maternal Grandmother Chelsie Alive Mother Pebbles Alive [...] points, staff should administer the PHQ-9) 4 06/09/2025 PHQ-9 Answer Date Recorded PHQ-9 Total Score 13 06/09/2025 Comments Unknown Sex and Gender Information Value Date Recorded Sex Assigned at Not on file Legal Sex Female 1:17 PM CDT Gender Identity Female 10/10/2021 10:07 AM GENERAL HOUSE WORKER Sexual Orientation Choose not to disclose 2020 10:07 AM GENERAL HOUSE WORKER Obstetrics History Para Term AB IAB SAB Ectopic Multiple Livin g Live Births 1 0 0 0 0 0 0 0 0 0 0 Date Outcome GA Total Labor Labor/2nd/3rd Weight Sex Type Anes PTL [place] A1 A5 Name Clin Last Filed Vital Signs Vital Sign Reading Time Taken Comments Blood Pressure 120/76 06/09/2025 10:19 AM CDT Pulse 92 06/09/2025 10:19 AM CDT Temperature 36.3 C (97.4 F) 06/09/2025 10:19 AM CDT Respiratory Rate 18 06/09/2025 10:19 AM CDT Oxygen Saturation 96% 06/09/2025 10:19 AM CDT Inhaled Oxygen Concentration - - Weight 128.4 kg (283 lb) 06/09/2025 10:19 AM CDT Height 165.1 cm (5' 5) 06/09/2025 10:19 AM CDT Body Mass Index 47.09 06/09/2025 10:19 AM CDT Plan of Treatment Health Maintenance Due Date Last Done Comments Cervical Cancer Screening 1999 Pneumococcal vaccine <65 (1 of 2 - PCV) 2018 Zoster Vaccine (1 of 2) 2018 Covid-19 Vaccine (3 - Modern a risk series) 03/01/2021 02/01/2021, 01/04/2021 Influenza Vaccine (#1) 2025 07/09/2023 Depression Screening 06/09/2026 06/09/2025, 06/09/2025, 02/21/2022, Additional history exists Regular Well Visit/Exam 18-64 06/09/2026 06/09/2025 DTaP/Tdap/Td Vaccine (6 - Td or Tdap) 06/25/2033 06/25/2023, 11/30/2000, 01/13/2000, Additional history exists Varicella Vaccines Discontinued 09/16/2000 HPV Vaccines Discontinued 06/09/2016 Hepatitis B Screening Completed 08/22/2024 , 04/23/2000, 1999, Additional history exists Hepatitis C Screening Completed 08/22/2024 Procedures Procedure Name Priority Date/Time Associated Diagnosis Comments EGFR Routine 06/09/2025 10:59 AM CDT High risk medication use [facility] (current) use of non-steroidal anti-inflammatories (nsaid) DIFFERENTIAL AUTO Routine 06/09/2025 10: 59 AM CDT High risk medication use hotel 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 (current) use of non-steroidal anti-inflammatories (nsaid) CBC WITH AUTO DIFFERENTIAL Routine 06/09/2025 10:59 AM CDT High risk medication use [facility] (current) use of non-steroidal anti-inflammatories (nsaid) COMPREHENSIVE METABOLIC PANEL Routine 06/09/2025 10:59 AM CDT High risk medication use hotel desk clerk (current) use of non-steroidal anti-inflammatories (nsaid) ERYTHROCYTE SEDIMENTATION RATE Routine 06/09/2025 10:59 AM CDT Seronegative inflammatory arthritis CRP (ACUTE PHASE) Routine 06/09/2025 10: 59 AM CDT Seronegative inflammatory arthritis HEPATITIS C ANTIBODY Routine 08/22/2024 1:05 PM CDT Need for hepatitis C screening test from Last 3 Months or Most Recently Relevant to Health Maintenance Results * eGFR (06/09/2025 10:59 AM CDT) eGFR >90 >=60 mL/min/1. 73 m2 Comment: [...] interpretive data was last reviewed 2021. Blood 06/09/2025 10:5 9 AM CDT 06/09/2025 6:29 PM CDT us Christine Jaffe MACHINE MADE SHOE UNIT WORKER LAB BLOOD ORDERABLES Final Re sult [facility] [address] Department [place] [address] * Differential, auto (06/09/2025 10:59 AM CDT) Neutrophil abs 6.08 1.50 - 6.50 K/cumm Imm gran abs 0.03 0.00 - 0.10 K/cumm [facility] Lymphocyte abs 2.53 0.80 - 3.30 K/cumm [facility] Monocyte abs 0.65 0.20 - 0.80 K/cumm [facility] Eosinophil abs 0.07 0.00 - 0.50 K/cumm [facility] Basophil abs 0.06 0.00 - 0.10 K/cumm [facility] Neutrophil pct 64.6 % [facility] Comment: Interpretive Data Percent cell count reference ranges are not reported, since discordance with absolute values may lead to misinterpretation of CBC data. Current Interpretive Data was last revised on 2018. Imm gran pct 0.3 % [facility] Comment: Interpretive Data Percent cell count reference ranges are not reported, since discordance with absolute values may lead to misinterpretation of CBC data. Current Interpretive Data was last revised on 2018. Lymphocyte pct 26.9 % [facility] Comment: Interpretive Data Percent cell count reference ranges are not reported, since discordance with absolute values may lead to misinterpretation of CBC data. Current Interpretive Data was last revised on 2018. Monocyte pct 6.9 % [facility] Comment: Interpretive Data Percent cell count reference ranges are not reported, since discordance with absolute values may lead to misinterpretation of CBC data. Current Interpretive Data was last revised on 2018. Eosinophil pct 0.7 % [facility] Comment: Interpretive Data Percent cell count reference ranges are not reported, since discordance with absolute values may lead to misinterpretation of CBC data. Current Interpretive Data was last revised on 2018. Basophil pct 0.6 % [facility] Comment: Interpretive Data Percent cell count reference ranges are not reported, since discordance with absolute values may lead to misinterpretation of CBC data. Current Interpretive Data was last revised on 2018. Blood 06/09/2025 10:5 9 AM CDT 06/09/2025 6:47 PM CDT us Christine Jaffe MACHINE MADE SHOE UNIT WORKER LAB BLOOD ORDERABLES Final Re sult [facility] [address] Department [place] [address] * (ABNORMAL) CBC with auto differential (06/09/2025 10:59 AM CDT) WBC 9.42 3.80 - 9.90 K/cumm Hgb 13.4 11.9 - 15.5 g/dL [facility] Hct 42.1 35.6 - 45.5 % [facility] Plt 295 150 - 400 K/cumm [facility] MPV 10.3 9.1 - 12.3 fL [facility] RBC 4.75 3.90 - 5.20 M/cumm [facility] MCV 88.6 81.3 - 96.4 fL [facility] MCH 28.2 27.1 - 33.3 pg [facility] MCHC 31.8(L) 32.3 - 35.7 g/dL [facility] RDW CV 13.1 11.1 - 14.9 % [facility] RDW SD 42.6 35.7 - 48.1 fL [facility] NRBC abs 0.00 0.00 - 0.01 K/cumm [facility] Blood 06/09/2025 10:5 9 AM CDT 06/09/2025 6:47 PM CDT Christine Jaffe MACHINE MADE SHOE UNIT WORKER LAB BLOOD ORDERABLES Final Re sult Performing Organization Address [facility] Co de Phone Number [facility] [address] [facility] [place] [address] * Erythrocyte sedimentation rate (06/09/2025 10:59 AM CDT) [facility] Erythrocyte sedimentation rate 13 1 - 20 mm/hr Blood 06/09/2025 10:5 9 AM CDT 06/09/2025 6:47 PM CDT Christine Jaffe MACHINE MADE SHOE UNIT WORKER LAB BLOOD ORDERABLES Final Re sult Performing Organization Address [facility] de Phone Number [facility] [address] [facility] [place] [address] * CRP (acute phase) (06/09/2025 10:59 AM CDT) [facility] CRP 6.3 <=10.0 mg/L Blood 06/09/2025 10:5 9 AM CDT 06/09/2025 6:29 PM CDT Christine Jaffe MACHINE MADE SHOE UNIT WORKER LAB BLOOD ORDERABLES Final Re sult Performing Organization Address [facility] de Phone Number [facility] [address] [facility] [place], [place] [id number] * (ABNORMAL) Comprehensive metabolic panel (06/09/2025 10:59 AM CDT) [facility] Sodium 141 135 - 145 mmol/L Potassium, pl 4.3 3.3 - 4.9 mmol/L [facility] Chloride 107 97 - 110 mmol/L [facility] CO2 22 22 - 32 mmol/L [facility] Anion gap 12 2 - 15 mmol/L [facility] BUN 17 6 - 25 mg/dL [facility] Creatinine 0.55(L) 0.60 - 1.10 mg/dL [facility] Glucose 84 70 - 199 mg/dL [facility] Comment: Interpretive Data Fasting glucose >/= 126 [...] interpretive data was last revised 2022. Calcium 9.4 8.5 - 10.3 mg/dL [facility] Bilirubin, total 0.4 0.1 - 1.2 mg/dL [facility] Protein, pl 6.9 6.5 - 8.5 g/dL [facility] Albumin 4.1 3.5 - 5.0 g/dL [facility] Alk phos 58 40 - 130 Units/L [facility] ALT 15 7 - 45 Units/L [facility] AST 14 10 - 45 Units/L [facility] Blood 06/09/2025 10:5 9 AM CDT 06/09/2025 6:29 PM CDT us Christine Jaffe MACHINE MADE SHOE UNIT WORKER LAB BLOOD ORDERABLES Final Re sult [facility] [address] Department [place] [address] * Hepatitis C antibody Blood (08/22/2024 1:05 [...] LAB MICROBIOLOGY - GENERAL ORDERABLES Final Result [facility] [address] Department [place] [address] from Last 3 Months or Most Recently Relevant to Health Maintenance Insurance [employer] OPEN ACCESS [employer] ACCESS Care Teams Managing Member Relationship Specialty Start Date End Date Kristy Oates NP PCP - General Nurse Practitioner 01/03/22 Luiza Patel DPT Physical Therapist Physical Therapy 03/20/22
--- OUTSIDE RECORDS SUMMARY | 2025-08-20 11:30 | XMS_ITS | Encounter Summary ---
Author Organization [facility] Healthcare Address [address] [place] [address] Care Team Providers Care Inner Tube Cutter Name Role Phone Kristy Oates PROJECT COACH Primary Care Provider Luiza Patel DPT Unavailable [phone] Reason for Referral * Physical Therapy (Routine) - Pending Review Specialty Diagnoses / Procedures Referred By Charlene deleon Referred To Contact Physical Therapy Diagnoses Seronegative inflammatory arthritis Nicky Truong DO [address] [place] [address] [address] [address] Phone: tel: fax: External Order Referral ID Status Reason Start Date Expiration Date Visits Requested Visits Authorized [id number] Pending Review Specialty Services Required 12/19/2024 01/18/2026 24 24 Question Answer PTRFR PT Evaluate and Treat Therapy options discussed with patient? Yes Location provided for therapy services is: Patient requested/Patient preferred Please select the performing region: External Order [171] # of visits: 24 Comments ET LATHE OPERATOR Encounter Details Date Type Department Care Team (Late st Contact Info) Description 12/15/2024 E-Visit [facility] Rheumatology at [facility] [address] [place] [address] Nicky Truong, DO [address] [place] [address] Physical therapy Social History Tobacco Use Types [...] CDT Gender Identity Female 10/10/2021 10:07 AM TURRET LATHE OPERATOR Sexual Orientation Choose not to disclose 2020 10:07 AM TURRET LATHE OPERATOR documented as of this encounter Plan of Treatment Scheduled Referrals Name Type Priority Associated Diagnoses Orde r Schedule Ambulatory referral order to Physical Therapy - Outpatient Referral Routine Seronegative inflammatory arthritis 1 Occurrences starting 12/19/2024 until 06/18/2026 documented as of this encounter Visit Diagnoses Diagnosis Seronegative inflammatory arthritis- Primary documented in this encounter Care Teams Inner Tube Cutter Relationship Specialty Start Date End Date Kristy Oates NP PCP - General Nurse Practitioner 01/03/22 Luiza Patel DPT Physical Therapist Physical Therapy 03/20/22 documented as of this encounter
[2025-08-20 11:35] VITALS: BP 117/57; PULSE 114; RESP 18; TEMP 36.8; O2SAT 97
--- NOTE | 2025-08-20 11:39 | ED_ITS ---
HPI - URI/Sore Throat General Chief Complaint: Upper Respiratory Infection Stated Complaint: sore throat Time Seen by Provider: 08/20/25 11:40 Source: patient Mode of arrival: ambulatory Limitations: no limitations History of Present Illness HPI Narrative: Evangelina is a 25-year-old female patient presenting to the clinic today with complaints of feeling feverish, sore throat, headache, nasal congestion,sinus pressure, productive cough with green phlegm, fatigue, swollen lymph nodes, shortness of breath and left upper abdominal discomfort when taking deep breath or cough- dull achy pain. She reports the lymph node swelling has been going on for approximately 1 week. Rates pain 04/04. Has taken Tylenol for her symptoms. Patient has history of RA and takes enbrel and hydroxychloroquine MD elicited complaint: sore throat and nasal congestion Related Data Home Medications ?Medication ?Instructions ?Recorded ?Confirmed ?Last Taken ?Type sertraline 50 mg tablet 75 mg PO DAILY 12/08/2311/27 Unknown History hydroxychloroquine 200 mg tablet 200 mg PO BID 5 12/19/24 Unknown History (Plaquenil) meloxicam 15 mg tablet 15 mg PO 12/19/24 12/19/24 U nknown History buspirone 10 mg tablet mg 08/20/25 Unknown History etanercept 25 mg/0.5 mL 25 mg subcut WEEKLY 08/20/25 08/20/25 Unknown History subcutaneous solution (Enbrel) Allergies Allergy/AdvReac Type Severity Reaction Status Date / Time tree nut Allergy Severe Swelling Verified 08/20/25 11:39 of Lip/Tongue/Throat cefdinir (From Omnicef) Allergy Mild Hives Verified 08/20/25 11:39 Review of Systems Review of Systems: Pertinent positives per HPI. Patient denies any fever, chills, rash, visual changes, dizziness, cough, shortness of breath, chest pain, palpitations, nausea, vomiting, diarrhea, constipation, or any urinary issues. [facility] Past Medical History Medical History Arthritis Pain with urination Heart palpitations Suppression of menses Surgical History Surgical History H/O laparoscopy Family History Family History Grandparent Malignant neoplasm of prostate Diabetes mellitus Heart disease Breast cancer Hypertension Mother Hypertension Social History Social History Smoking status: Never smoker Second hand tobacco smoke exposure: No Alcohol intake: former Substance use: never Lack of Transportation: No Lack of Food: Never True Current Housing: I Have Housing Concerned About Future Housing: No Difficulty Paying Gas/Electric Bills: No Difficulty Paying for Meds: No Currently Unemployed: No Education: High School Diploma/GED Difficulty w/ Childcare or Family Care: No Living arrangements: other Additional living arrangements comments: spouse Occupation/Education: unemployed Gender identity (if verbalized by the patient): Female Sexual Orientation (if Verbalized by the Patient): Straight or Heterosexual Spiritual care concerns: No Comments At the time of my signature, I reviewed and agree with the nursing past medical, surgical, social, and family history. There is no relevant family history pertinent to the patient complaint. Exam Narrative: General: Well-developed, morbidly obese, in no apparent distress Head: Normocephalic, atraumatic Eyes: Pupils equally round and reactive to light bilaterally, EOM intact, sclera and conjunctive clear, no discharge, lids normal Ears: TMs intact and clear, ear canals clear, no drainage, grossly hearing normal. Nose: Nares patent, clear nasal discharge, moderate inflammation, maxillary and frontal sinus tenderness. Mouth: Oral pharynx red without lesions or masses, good dentition, MMM. Postnasal drip Neck: Supple, trachea midline, left sided anterior cervical node enlargement, enlargement of bilateral posterior cervical nodes, no thyroid masses or goiter palpable. Cardio: Regular rate and rhythm, s1 and s2 normal, no murmur appreciated. Resp: Diminished in the bases, no rhonchi, rales, wheezing or rubs Abdomen: Soft, pliable, bowel sounds present in all quadrants, mild LUQ abdomen tender to palpation, no organomegly, no CVAT tenderness. Course Course Emergency Course: Portions of this record may have been created with voice recognition software. Level of Care: Express Care Visit Vital Signs Vital signs: Vital Signs Temperature 36.8 C 08/20/25 11:35 Pulse Rate 114 H 08/20/25 11:35 Respiratory Rate 18 08/20/25 11:35 Blood Pressure 117/57 L 08/20/25 11:35 Pulse Oximetry 97 08/20/25 11:35 Oxygen Delivery Room Air 08/20/25 11:35 Temperature 36.8 C 08/20/25 11:35 Pulse Rate 114 H 08/20/25 11:35 Respiratory Rate 18 08/20/25 11:35 Blood Pressure 117/57 L 08/20/25 11:35 Pulse Oximetry 97 08/20/25 11:35 Oxygen Delivery Room Air 08/20/25 11:35 Vital signs reviewed MDM - URI/Sore Throat MDM Narrative Medical decision making narrative: At the time of visit patient is resting comfortably on the exam table. Patient appears to be nontoxic. Complaints of feeling feverish, sore throat, headache, nasal congestion,sinus pressure,productive cough with green phlegm, fatigue, swollen anterior and posterior lymph nodes, shortness of breath, and left upper abdominal discomfort when taking deep breath or cough- dull achy pain. She reports the lymph node swelling has been going on for approximately 1 week. Rates pain 04/04. Has taken Tylenol for her symptoms. Patient has history of RA and takes Enbrel and hydroxychloroquine. On exam patient has bilateral TMs intact and clear, clear nasal drainage with moderate congestion, maxillary and frontal tenderness to palpation, oral pharynx red with postnasal drip, heart rate tachycardic-regular rate and rhythm, lung sounds diminished in the bases, mildly tenderness to palpation over the left upper abdomen, soft, pliable abdomen with normal bowel sounds. No organomegaly. Labs: Strep and mono testing were negative in the clinic today. Diagnostics: Chest x-ray is negative for any acute cardiopulmonary process. Plan: I suspect patient has sinusitis, cervical lymphadenopathy, pharyngitis, and likely left upper abdominal wall pain. Patient takes Enbrel and hydroxychloroquine for RA. Prescriptions for Augmentin was sent to the pharmacy. Supportive measures were discussed with the patient and they voiced understanding discharge instructions and agrees to treatment plan. Return precautions reviewed. Differential Diagnosis Differential diagnosis: Likely upper respiratory infection, otitis media, sinusitis, viral infection, bronchitis, influenza, pharyngitis and other (COVID) Imaging Data Radiologist's impression: ITS Impressions Chest X-Ray 08/20/25 12:23 IMPRESSION: 1. No acute cardiopulmonary findings. Discharge Plan Discharge Clinical Impression: Pharyngitis, Cervical lymphadenopathy, Sinusitis, Abdominal wall pain in left upper quadrant Patient Disposition: Home Condition: Stable Instructions: Antibiotic Form, Pharyngitis (ED), Lymphadenopathy (ED), Abdominal Pain (ED) Additional Instructions: Strep and mono testing was negative in the clinic today. Chest x-ray was negative for any acute cardiopulmonary process. Take prescription medications only as prescribed-Augmentin Increase fluids and stay well hydrated May take Tylenol or motrin as directed on bottle for pain/fever May use Flonase 1 spray in each nare daily May take OTC antihistamines such as Zyrtec or Claritin daily as directed on bottle May apply Vicks vapor rub to chest to open sinuses Sinus rinses for congestion Cepacol spray, cough drops, throat lozenges, warm tea with honey/lemon, gargle salt water to soothe throat BRAT diet for diarrhea Clear liquids x 24 hours then advance as tolerated for nausea/vomiting Go to the ED if you develop a worsening in your condition- high fever not controlled by Tylenol or Motrin, dehydration, weakness, lethargy, shortness of breath, or chest pain. Follow up with your PCP in 3-5 days if symptoms persist. Patient Language: Kittitian Prescriptions: New amoxicillin-pot clavulanate 875-125 mg tablet 1 tablet PO Q12H 10 Days Qty: 20 0RF No Action Enbrel 25 mg/0.5 mL solution 25 mg subcut WEEKLY buspirone 10 mg tablet sertraline 50 mg tablet 75 mg PO DAILY meloxicam 15 mg tablet 15 mg PO hydroxychloroquine [Plaquenil] 200 mg tablet 200 mg PO BID Follow-up/Referrals: UNKNOWN,DOCTOR [Primary Care Provider] Time of Disposition: 12:27 Quality NIHSS Nursing Documentation ED NIHSS nursing documentation: reviewed/agree
[2025-08-20 12:06] LABS: EDMONONEGPOS Negative (Negative); EDSTREPNEGPOS1 Negative (Negative)
== END 2025-08-20 12:30 | disposition home or self-care (01) ==
PROVIDERS: Emergency Provider Nurse Practitioner Family
DX: J02.9 Acute pharyngitis, unspecified (principal); R59.0 Localized enlarged lymph nodes; J32.9 Chronic sinusitis, unspecified; R10.12 Left upper quadrant pain; M06.9 Rheumatoid arthritis, unspecified; M19.90 Unspecified osteoarthritis, unspecified site
CPT/HCPCS: 36416; 71046; 86308; 87880; 99213; G0463

== ENCOUNTER 2025-08-23 17:39 | Emergency (ER) | payer OTHER, SELFPAY ==
[2025-08-23 17:47] VITALS: BP 141/80; PULSE 96; RESP 16; TEMP 36.2; O2SAT 97
--- OUTSIDE RECORDS SUMMARY | 2025-08-23 18:10 | XMS_ITS | Clinical Summary ---
Author Organization [facility] Address [address] [place] [address] Care Team Providers Care Lead Recreation Assistant Name Role Phone Kristy Prado DISPENSARY CLERK Primary Care Provider [phone] Nicky Trunog DO Unavailable Allergies Active Allergy Reactions Criticality Noted Date [...] Description 06/22/2025 11:14 AM CDT Anesthesia Event [facility] [place] [address] Gus Anderson MD Jackson, Allison Hope, K [address] PRINCIPAL 06/22/2025 10:44 AM CDT - 06/22/2025 11:36 AM CDT Surgery [facility] [place] [address] Brandon Macias MD CYSTOSCOPY AND BULKING AGENT 06/22/2025 9:48 AM CDT - 06/22/2025 1:10 PM CDT Hospital Encounter [facility] [place] [address] Brandon Macias MD Discharge Disposition: Home or Self Care (Routine Discharge) 06/22/2025 Travel 06/21/[address] [facility] [place] [address] Brandon Macias MD 06/21/2025 Travel from Last [...] this topic Medical Devices Implanted Type Area Dinkey Locomotive Engineer Device Identifier Shelf Expiration Date Model / Serial / Lot Bulkamid Urethra Bulking Agent - [id number] Implanted:Qty : 1 on 06/22/2025 by Brandon Macias MD at [facility] Urology N/A: Urethra [employer] 04/24/2027 [id number] / / [id number] Procedures Procedure Name Priority Date/Time Associated Diagnosis Comments ENDOSCOPIC INJECTION/IMPLANT 06/22/2025 11:14 AM CDT STRESS INCONTINENCE FEMALE, URGENCY OF URINATION N39.3, R39.15 Case Notes SCHED BY FAX (CONFIRMED DATE OF 06/22/2025 WITH MARLEY) 06/19/2025 [facility] PHONE ASSESS POCT URINE (BACK OFFICE) STAT 06/22/2025 Preop examination from Last 3 Months Results * POCT urine (06/22/2025) URINE HCG TEST NEGATIVE NEGATIVE [facility] Comment:LOT: [id number] EXP: 2026-11-16 Internal Control: VALID VALID [facility] 06/22/2025 Allison Hope Hadley [address] PRINCIPAL POINT OF CARE TEST ALBERT LIVAN Final Result [facility] [address] [place] [address], from Last 3 Months Insurance [employer] Care Teams Lead Recreation Assistant Relationship Specialty Start Date End Date Kristy Prado NP [address] [place] [address] PCP - General NURSE PRACTITIONER 06/21/25 Nicky Truong DO [address] [place] [address] RHEUMATOLOGY 06/21/25
--- OUTSIDE RECORDS SUMMARY | 2025-08-23 18:10 | XMS_ITS | Encounter Summary ---
Author Organization [facility] Address [address] [place] [address] Phone Care Team Providers Care Database Software Technician Name Role Phone Kristy Oates DRUG SAFETY SCIENTIST Primary Care Provider Luiza Patel DPT Unavailable [phone] Encounter Details Date Type Department Care [...] CDT Gender Identity Female 10/10/2021 10:07 AM BALLISTICS TESTER Sexual Orientation Choose not to disclose 2020 10:07 AM BALLISTICS TESTER documented as of this encounter Plan of [...] on filedocumented in this encounter Care Teams Database Software Technician Relationship Specialty Start Date End Date Kristy Oates NP PCP - General Nurse Practitioner 01/03/22 Luiza Patel DPT Physical Therapist Physical Therapy 03/20/22 documented as of this encounter
--- OUTSIDE RECORDS SUMMARY | 2025-08-23 18:10 | XMS_ITS | Encounter Summary ---
Author Organization [facility] Address [address] [place] [address] Care Team Providers Care Analytical Manager Name Role Phone Kristy Oates WINE BOTTLE INSPECTOR Primary Care Provider Luiza Patel DPT Unavailable [phone] Reason for Referral * Physical Therapy (Routine) - Pending Review Specialty Diagnoses / Procedures Referred By Charlene deleon Referred To Contact Physical Therapy Diagnoses Seronegative inflammatory arthritis Nicky Truong DO [address] [place] [address] [address], [place] [address] Phone: tel: fax: External Order Referral ID Status Reason Start Date Expiration Date Visits Requested Visits Authorized [id number] Pending Review Specialty Services Required 12/19/2024 01/18/2026 24 24 Question Answer PTRFR PT Evaluate and Treat Therapy options discussed with patient? Yes Location provided for therapy services is: Patient requested/Patient preferred Please select the performing region: External Order [171] # of visits: 24 Comments E CLERK Encounter Details Date Type Department Care Team (Late st Contact Info) Description 12/15/2024 E-Visit [facility] Rheumatology at [facility] [address] [place] [address] Nicky Truong, DO [address] [place] [address] Physical therapy Social History Tobacco Use Types [...] CDT Gender Identity Female 10/10/2021 10:07 AM TITLE CLERK Sexual Orientation Choose not to disclose 2020 10:07 AM TITLE CLERK documented as of this encounter Plan of Treatment Scheduled Referrals Name Type Priority Associated Diagnoses Orde r Schedule Ambulatory referral order to Physical Therapy - Outpatient Referral Routine Seronegative inflammatory arthritis 1 Occurrences starting 12/19/2024 until 06/18/2026 documented as of this encounter Visit Diagnoses Diagnosis Seronegative inflammatory arthritis- Primary documented in this encounter Care Teams Analytical Manager Relationship Specialty Start Date End Date Kristy Oates NP PCP - General Nurse Practitioner 01/03/22 Luiza Patel DPT Physical Therapist Physical Therapy 03/20/22 documented as of this encounter
--- OUTSIDE RECORDS SUMMARY | 2025-08-23 18:10 | XMS_ITS | Encounter Summary ---
Author Organization [facility] Address [address] [place] [address] Phone Care Team Providers Care Returns Supervisor Name Role Phone Pebbles Sanon THEATER TECHNICIAN Primary Care Provider [phone] Bebe Cheng DPT Unavailable [phone] Kristy Oates THEATER TECHNICIAN Primary Care Provider Luiza Patel DPT Unavailable [phone] Encounter Details Date Type Department Care Team (Latest Contact Info) Description 06/10/2018 Orders Only [facility] ED Scanning, Provider Social History Tobacco Use Types Packs/Day Years Used Date Smoking Tobacco: Never Assessed Comments Unknown Sex and Gender Information Value Date Recorded Sex Assigned at Not on file Legal Sex Female 1:17 PM CDT Gender Identity Female 10/10/2021 10:07 AM TREE SURGEON Sexual Orientation Choose not to disclose 2020 10:07 AM TREE SURGEON documented as of this encounter Plan of Treatment Not on file documented as of this encounter Procedures Procedure Name Priority Date/Time Associated Diagnosis Comments SCAN - LABS 06/10/2018 documented in this encounter Results * SCAN - LABS (06/10/2018) us Provider Scanning Final Result documented in this encounter Visit Diagnoses Not on filedocumented in this encounter Care Teams Returns Supervisor Relationship Specialty Start Date End Date Pebbles Sanon NP PCP - General Family Practice 08/13/21 01/02/22 Kristy Oates, MALIHA [address] [id number] PCP - General Nurse Practitioner 01/03/22 Bebe Cheng DPT [address] [id number] Physical Therapist Physical Therapy 09/12/21 03/19/22 Luiza Patel DPT [address] [id number] Physical Therapist Physical Therapy 03/20/22 documented as of this encounter
--- OUTSIDE RECORDS SUMMARY | 2025-08-23 18:10 | XMS_ITS | Clinical Summary ---
Author Organization [facility] Address [address] [place] [address] Care Team Providers Care Drop Wire Operator Name Role Phone Unavailable Primary Care Provider Unavailabl e Source Comments [facility],non-owned Affiliates and Associated Physician Practices is amultiple site organization consisting of ambulatory clinics and hospital sitesin [place], [place], [place]. This disclosure is being madepursuant to the Care Everywhere program and may not contain all information available regarding this patient. Last updated 18.[facility] Allergies Active Allergy Reactions Criticality Noted Date Comments Cefdinir Urticaria Medium 03/13/2023 Social History Tobacco Use Types Packs/Day Years Used Date Smoking Tobacco: Never Assessed Comments No Sex and Gender Information Value Date Recorded Sex Assigned at Not on file Legal Sex Female 3:01 PM CDT Gender Identity Not on file Sexual Orientation Not on file Plan of Treatment Health Maintenance Due Date Last Done Comments HIV SCREENING 2014 HPV VACCINE (1 - 3-dose series) 2014 HEPATITIS C SCREENING 05/23/2017 DTAP/TDAP/TD VACCINES (1 - Tdap) 2018 HEPATITIS B VACCINE (1 of 3 - 19+ 3-dose series) 2018 PAP SMEAR 2020 DEPRESSION SCREENING 10/26/2024 COVID-19 VACCINE (1 - 2023-2 5 season) 2025 INFLUENZA VACCINE (#1) 2025 ZOSTER VACCINE (1 of 2) 2049 HIB [...] on patient's age to complete this topic Insurance , [place] [address] [place] [address] [facility] [place] Address: [facility] [id number] [address]
--- OUTSIDE RECORDS SUMMARY | 2025-08-23 18:10 | XMS_ITS | Clinical Summary ---
Author Organization [facility] Virtual Care Address [address] [place] [phone] Phone Care Team Providers Care Associate Agent Insurance Sales Name Role Phone Kristy Oates FOREIGN STUDENT ADVISER TEACHER Primary Care Provider Luiza Patel DPT Unavailable [phone] Allergies Active Allergy Reactions Criticality Noted [...] Slit Lamp evaluation Color Vision Assessment OCT halfway (current) use of n on-steroidal anti-inflammatories (nsaid) [...] or kidney issues. Take care when using [id number] medications as some also contain NSAIDs. The most common [id number]-[id number] NSAIDs include naproxen and ibuprofen. Make sure [...] are complete. Avoid live-vaccines unless reviewed with exploration engineer first. High risk medication use 11/30/2024 Assessment & Plan (06/09/2025 10:29 AM CDT): Long-term use of high-risk medication requiring regular monitoring. Labs ordered, no s/s of med tox or infection. Encouraged to work with PCP to make sure all recommended cancer screens and vaccinations are complete. Avoid live-vaccines unless reviewed with exploration engineer first. Assessment & Plan (03/01/2025 3:38 PM CDT): Patient is on immunosuppressive medication requiring intensive lab monitoring for medication safety. Assessment & Plan (11/30/2024 7:07 AM OVERLOCK HEMMER): Patient is on immunosuppressive medication requiring intensive [...] milk. Assessment & Plan (11/30/2024 9:27 AM OVERLOCK HEMMER): Better with addition of hydroxychloroquine, but still [...] 7.5 mg daily - upcoming appointment with [facility] Rheumatology - denies redness, warmth, injury, pica, SOB, CP Increase meloxicam to 15 mg daily. Menorrhagia with regular cycle 05/05/2022 Dysmenorrhea 05/05/2022 Overview (05/05/2022): Added automatically from request for surgery [id number] Pelvic pain 01/15/2022 Overview (03/20/2022): - pelvic pain since 09/2021 - no history of PAP - denies discharged, abnormal periods, GI symptoms, UTI symptoms, or back pain - appointment with C[facility]ER in 02/2022 - possible interstitial cystitis Depression [...] Type Department Care Team Description 08/10/2025 Telephone [facility] Rheumatology at [id number] [facility] [address], [place] [address] Nicky Truong, DO nasal drainage 06/21/2025 Telephone [facility] [address] [phone] Yumiko Mendes CPhT 06/11/2025 Results Follow-Up [facility] Rheumatology at [id number] [address] [place] [id number] Christine Jaffe, MALIHA CRP (acute phase), Erythrocyte sedimentation rate, Comprehensive metabolic panel, Additional followed-up results: 3 06/09/2025 10:54 AM CDT - 06/09/2025 11:59 PM CDT Hospital Encounter [id number] [place] [address] Discharge Disposition: Discharge to home or self care 06/09/2025 10:30 AM CDT Office Visit [facility] Rheumatology at [address], [place] [address] Christine Jaffe NP Seronegative inflammatory arthritis (Primary Dx); High risk medication use; Long-term use of hydroxychloroquine; halfway (current) use of non-steroidal anti-inflammatories (nsaid); Immunosuppression due to drug therapy; BMI 45.0-49.9, adult (HCC) 06/09/2025 9:00 AM CDT Office Visit [facility] [address] [place] [address] Medical Office [address] [place] [address] Kristy Oates NP Encounter for [...] CDT Gender Identity Female 10/10/2021 10:07 AM OVERLOCK HEMMER Sexual Orientation Choose not to disclose 2020 10:07 AM OVERLOCK HEMMER Obstetrics History Para Term AB IAB SAB [...] 10:59 AM CDT High risk medication use halfway (current) use of non-steroidal anti-inflammatories (nsaid) DIFFERENTIAL AUTO Routine 06/09/2025 10: 59 AM CDT High risk medication use ferry terminal agent (current) use of non-steroidal anti-inflammatories (nsaid) CBC WITH AUTO DIFFERENTIAL Routine 06/09/2025 10:59 AM CDT High risk medication use halfway (current) use of non-steroidal anti-inflammatories (nsaid) COMPREHENSIVE METABOLIC PANEL Routine 06/09/2025 10:59 AM CDT High risk medication use ferry terminal agent (current) use of non-steroidal anti-inflammatories (nsaid) ERYTHROCYTE [...] 06/09/2025 6:29 PM CDT us Christine Jaffe FOREIGN STUDENT ADVISER TEACHER LAB BLOOD ORDERABLES Final Re sult [facility] [address] Department [place] [address] * Differential, auto (06/09/2025 10:59 AM CDT) Neutrophil abs 6.08 1.50 - 6.50 K/cumm Imm gran abs 0.03 0.00 - 0.10 K/cumm [facility] Lymphocyte abs 2.53 0.80 - 3.30 K/cumm [facility] Monocyte abs 0.65 0.20 - 0.80 K/cumm [facility] Eosinophil abs 0.07 0.00 - 0.50 K/cumm [facility] Basophil abs 0.06 0.00 - 0.10 K/cumm [facility] Neutrophil pct 64.6 % [facility] Comment: Interpretive Data Percent cell count reference ranges are not reported, since discordance with absolute values may lead to misinterpretation of CBC data. Current Interpretive Data was last revised on 2018. Imm gran pct 0.3 % [facility] Comment: Interpretive Data Percent cell count reference ranges are not reported, since discordance with absolute values may lead to misinterpretation of CBC data. Current Interpretive Data was last revised on 2018. Lymphocyte pct 26.9 % [facility] Comment: Interpretive Data Percent cell count reference ranges are not reported, since discordance with absolute values may lead to misinterpretation of CBC data. Current Interpretive Data was last revised on 2018. Monocyte pct 6.9 % [facility] Comment: Interpretive Data Percent cell count reference ranges are not reported, since discordance with absolute values may lead to misinterpretation of CBC data. Current Interpretive Data was last revised on 2018. Eosinophil pct 0.7 % [facility] Comment: Interpretive Data Percent cell count reference ranges are not reported, since discordance with absolute values may lead to misinterpretation of CBC data. Current Interpretive Data was last revised on 2018. Basophil pct 0.6 % [facility] Comment: Interpretive Data Percent cell count reference ranges are not reported, since discordance with absolute values may lead to misinterpretation of CBC data. Current Interpretive Data was last revised on 2018. Blood 06/09/2025 10:5 9 AM CDT 06/09/2025 6:47 PM CDT us Christine Jaffe FOREIGN STUDENT ADVISER TEACHER LAB BLOOD ORDERABLES Final Re sult [facility] [address] Department [place] [address] * (ABNORMAL) CBC with auto differential (06/09/2025 10:59 AM CDT) WBC 9.42 3.80 - 9.90 K/cumm Hgb 13.4 11.9 - 15.5 g/dL [facility] Hct 42.1 35.6 - 45.5 % [facility] Plt 295 150 - 400 K/cumm [facility] MPV 10.3 9.1 - 12.3 fL [facility] RBC 4.75 3.90 - 5.20 M/cumm [facility] MCV 88.6 81.3 - 96.4 fL [facility] MCH 28.2 27.1 - 33.3 pg [facility] MCHC 31.8(L) 32.3 - 35.7 g/dL [facility] RDW CV 13.1 11.1 - 14.9 % [facility] RDW SD 42.6 35.7 - 48.1 fL [facility] NRBC abs 0.00 0.00 - 0.01 K/cumm [facility] Blood 06/09/2025 10:5 9 AM CDT 06/09/2025 6:47 PM CDT Christine Jaffe FOREIGN STUDENT ADVISER TEACHER LAB BLOOD ORDERABLES Final Re sult Performing Organization Address [facility] Co de Phone Number [facility] [address] [facility] [place] [address] * Erythrocyte sedimentation rate (06/09/2025 10:59 AM CDT) [facility] Erythrocyte sedimentation rate 13 1 - 20 mm/hr Blood 06/09/2025 10:5 9 AM CDT 06/09/2025 6:47 PM CDT Christine Jaffe FOREIGN STUDENT ADVISER TEACHER LAB BLOOD ORDERABLES Final Re sult Performing Organization Address [facility] de Phone Number [facility] [address] [facility] [place] [address] * CRP (acute phase) (06/09/2025 10:59 AM CDT) [facility] CRP 6.3 <=10.0 mg/L Blood 06/09/2025 10:5 9 AM CDT 06/09/2025 6:29 PM CDT Christine Jaffe FOREIGN STUDENT ADVISER TEACHER LAB BLOOD ORDERABLES Final Re sult Performing Organization Address [facility] de Phone Number [facility] [address] [facility] [employer] [place], [place] [id number] * (ABNORMAL) Comprehensive metabolic panel (06/09/2025 10:59 AM CDT) [facility] Sodium 141 135 - 145 mmol/L Potassium, pl 4.3 3.3 - 4.9 mmol/L [facility] Chloride 107 97 - 110 mmol/L [facility] CO2 22 22 - 32 mmol/L [facility] Anion gap 12 2 - 15 mmol/L [facility] BUN 17 6 - 25 mg/dL [facility] Creatinine 0.55(L) 0.60 - 1.10 mg/dL [facility] Glucose 84 70 - 199 mg/dL [facility] Comment: Interpretive Data Fasting glucose [...] 2022. Calcium 9.4 8.5 - 10.3 mg/dL [facility] Bilirubin, total 0.4 0.1 - 1.2 mg/dL [facility] Protein, pl 6.9 6.5 - 8.5 g/dL [facility] Albumin 4.1 3.5 - 5.0 g/dL [facility] Alk phos 58 40 - 130 Units/L [facility] ALT 15 7 - 45 Units/L [facility] AST 14 10 - 45 Units/L [facility] Blood 06/09/2025 10:5 9 AM CDT 06/09/2025 6:29 PM CDT us Christine Jaffe FOREIGN STUDENT ADVISER TEACHER LAB BLOOD ORDERABLES Final Re sult [facility] [address] Department [place] [address] * Hepatitis C antibody Blood (08/22/2024 1:05 [...] MICROBIOLOGY - GENERAL ORDERABLES Final Result [facility] [address] Department [place] [address] from Last 3 Months or Most Recently Relevant to Health Maintenance Insurance [employer] OPEN ACCESS [employer] OPEN ACCESS Care Teams Associate Agent Insurance Sales Relationship Specialty Start Date End Date Kristy Oates NP PCP - General Nurse Practitioner 01/03/22 Luiza Patel DPT Physical Therapist Physical Therapy 03/20/22
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
[2025-08-23] MEDS: TETANUS,DIPHTHERIA,AC PERTUSSIS ADULT (0.5 ML) BOOSTRIX IM (18:23)
== END 2025-08-23 18:51 | disposition home or self-care (01) ==
DX: S61.451A Open bite of right hand, initial encounter (principal); S51.852A Open bite of left forearm, initial encounter; Y04.1XXA Assault by human bite, initial encounter; Y99.0 Civilian activity done for income or pay; Z23 Encounter for immunization; M19.90 Unspecified osteoarthritis, unspecified site
CPT/HCPCS: 90471; 90715; 99213; G0463